=== PATIENT | female | born 1930 | race Two or more races ===

== ENCOUNTER 2017-12-09 14:55 | Inpatient (IN) | END 2017-12-30 16:15 | disposition home health service (06) | DRG 871 ==

== ENCOUNTER 2018-12-17 12:59 | Inpatient (IN) | payer MEDICARE, OTHER ==
[~2018-12-17] VITALS: Ht 157.5 cm; Wt 65.3 kg
[~2018-12-17 12:59] MED LIST: ALPR0.254 PO; ASCO500C7 PO; ATOR40TA68 PO; CARV6.25 PO; CHOL100062 PO; CIPR500T4 PO; CLOP75TA27 PO; CYAN1TAB2 PO; DOCU-144 PO; DONE5TAB53 PO; ESOM40CA51 PO; LOSA1TAB22 PO; MEMA5TAB PO; METF-849 PO; QUET25TA PO; SIME62.5 PO
--- NOTE | 2018-12-17 13:52 | ERD ---
ER Documentation Chief Complaint Chief Complaint BIBA FROM HOME FOR EVALUATION OF G-TUBE HPI This is an 88-year-old woman with a history of CVA, dysphasia, PEG tube brought in by EMS from home for bleeding from the stoma. Daughter who is at the bedside states the bleeding has been daily and moderate for about 1 week and the stoma has become wider recently. The patient's gastrostomy tube was replaced just prior to arrival with a 26 [place] tube, after tube replacement there was severe bleeding so they contacted 911 and transported her here for further evaluation. She has had no blood per rectum, no fevers or chills, no complaints of chest pain or shortness of breath ROS All systems reviewed and are negative except as per history of present illness. Medications Home Meds Reported Medications Carvedilol* (Carvedilol*) 6.25 Mg Tablet, 6.25 MG PO BID, #60 TAB 12/17/18 Losartan-Hydrochlorothiazide (Losartan-HCTZ) 50-12.5 Mg Tab, 1 TAB PO DAILY, TAB 12/17/18 Clopidogrel Bisulfate* (Clopidogrel Bisulfate*) 75 Mg Tablet, 75 MG GTB DAILY, #30 TAB 12/17/18 Levetiracetam* (Keppra*) 250 Mg Tab, 125 MG GTB BID, TAB 12/17/18 Metformin Hcl* (Metformin Hcl*) 500 Mg Tablet, 500 MG GTB WITH BREAKFAST DINNE, #60 TAB 12/17/18 Discontinued Reported Medications Alprazolam* (Alprazolam*) 0.25 Mg Tablet, 0.25 MG PO DAILY PRN for ANXIETY, TAB 12/09/17 Docusate Sodium* (Colace*) 100 Mg Capsule, 100 MG PO BID PRN for CONSTIPATION, #60 CAP 12/09/17 Atorvastatin* (Atorvastatin*) 40 Mg Tablet, 40 MG PO QHS, #30 TAB 12/09/17 Simethicone (Gas-X) 62.5 Mg Strip, 62.5 MG PO DAILY, STRIP 12/09/17 Cholecalciferol* (Vitamin D3*) 1,000 Unit Tablet, 1000 UNIT PO DAILY, TAB 12/09/17 Ascorbic Acid* (Vitamin C*) 500 Mg Capsule.sa, 500 MG PO DAILY, CAP 12/09/17 Losartan-Hydrochlorothiazide (Losartan-HCTZ) 50-12.5 Mg Tab, 1 TAB PO DAILY, #30 12/09/17 Carvedilol* (Coreg*) 6.25 Mg Tablet, 6.25 MG PO BID, #60 TAB 12/09/17 Quetiapine Fumarate* (Seroquel*) 25 Mg Tablet, 25 MG PO DAILY, #30 TAB 12/09/17 Cyanocobalamin/FA/Pyridoxine (Folgard Rx Tablet) 1 Each Tablet, 1 EACH PO DAILY, TAB 12/09/17 Metformin* (Glucophage*) 500 Mg Tab, 500 MG PO WITH MEALS, #90 TAB 12/09/17 Clopidogrel Bisulfate (Clopidogrel) 75 Mg Tablet, 75 MG PO DAILY, #30 TAB 12/09/17 Esomeprazole Magnesium (Esomeprazole Magnesium) 40 Mg Capsule.dr, 40 MG PO BEFORE BREAKFAST, #30 CAP 12/09/17 Discontinued Scripts Ciprofloxacin Hcl* (Ciprofloxacin Hcl*) 500 Mg Tablet, 500 MG PO BID for 7 Days, #14 TAB Prov:JUAN ALBERTO DUNLAP 12/30/17 Ciprofloxacin Hcl* (Ciprofloxacin Hcl*) 500 Mg Tablet, 500 MG PO BID for 3 Days, #6 TAB Prov:JUAN ALBERTO DUNLAP 12/30/17 Memantine* (Namenda*) 5 Mg Tablet, 5 MG PO DAILY, #60 TAB Prov:JUAN ALBERTO DUNLAP 12/30/17 Donepezil* (Aricept*) 5 Mg Tablet, 5 MG PO DAILY, #60 TAB Prov:GERMÁNJUAN ALBERTO PETERSON 12/30/17 Allergies Allergies: Coded Allergies: niacin (Verified Allergy, Unknown, 12/17/18) vancomycin (Unverified Allergy, Unknown, red and rash, 12/17/18) 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 CABALLERO: GIVE VANCO SLOWLY 12/11/17 PMhx/Soc CAD, recent CVA with hemiplegia and dysphagia requiring PEG tube placement, recent UTI, hypertension History of Surgery: No (bilateral hips replacement, Left one , right 06/02/2017,hysterectomy) Anesthesia Reaction: No Hx Neurological Disorder: Yes (diagnosis of possible dementia) Hx Respiratory Disorders: No Hx Cardiac Disorders: Yes (mild CHF,) Hx Psychiatric Problems: No Hx Miscellaneous Medical Probl: Yes (pls see EMR) Hx Alcohol Use: No Hx Substance Use: No Hx Tobacco Use: No FmHx Family History: No diabetes Physical Exam Vitals Vital Signs Date Temp Pulse Resp B/P (MAP) Pulse Ox O2 O2 Flow FiO2 Time Delivery Rate 12/17/18 98.6 88 16 146/90 97 13:12 (108) Physical Exam Const: No acute distress, afebrile Resp: Clear to auscultation bilaterally Cardio: Regular rate and rhythm, no murmurs Abd: Soft, non tender, non distended. There is about a 4 cm circular stoma with dark coagulated blood near and just beneath opening, PEG tube is in place Skin: No petechiae or rashes Neur: Awake and alert x1, no focal deficits or facial asymmetry, pupils equal round reactive to light, able to answer simple questions Psych: Normal Mood and Affect Result Diagram: 12/17/18 1430 12/17/18 1430 Results 24 hrs Current Medications Medications Dose Sig/Tavo Start Time Status Last (Trade) Ordered Route PRN Stop Time Admin Dose Reason Admin Sodium 500 ml @ Q1H STAT 12/17/18 DC 12/17/18 Chloride 500 mls/hr IV 14:14 14:53 12/17/18 15:13 Procedures/MDM IV line was established patient was placed on cushion worker rhythm strip revealed a sinus rhythm at about 80 bpm with upright P and T waves. Patient was afebrile I administered 500 cc normal saline IV X-ray Abdomen 1V Interpreted by me: Free Air: None Bowel Gas: Nonspecific Soft Tissue: Normal, gastrostomy tube is in proper position, balloon within the stomach lumen and no leaking contrast noted. CBC reveals a leukocytosis and mild anemia, electrolytes revealed dehydration with a BUN/creatinine of 29/0.5, liver function tests normal, lactic acid low. I do not suspect sepsis. I called GI for consultation, stoma and gastrostomy tube will have to be evaluated, patient will be admitted to [facility]. Departure Diagnosis: Primary Impression: Encounter for feeding tube placement Additional Impression: Acute dehydration Condition: NINI Up MD December 17, 2018 13:52
[2018-12-17] MEDS ORDERED: SOD CHLORIDE 0.9% 500 ML IV STA (14:14)
[2018-12-17] MEDS ORDERED: DIATR MEGLU/DIATRIZOATE SODIUM 30 ML SOLUTION PO ONE (14:30)
[2018-12-17] MEDS ORDERED: METF500T24 GTB (14:44)
[2018-12-17] MEDS ORDERED: CLOP75TA19 GTB (14:46)
[2018-12-17] MEDS ORDERED: LEVE250T66 GTB (14:46)
[2018-12-17] MEDS ORDERED: LOSA1TAB22 PO (14:47)
[2018-12-17] MEDS ORDERED: CARV6.2579 PO (14:47)
[2018-12-17] MEDS ORDERED: ONDANSETRON 4 MG INJ IV PRN (15:00)
[2018-12-17] MEDS ORDERED: NACL 0.9% 3 ML SYG IV SCH (15:00)
[2018-12-17] MEDS ORDERED: GLUCOSE GEL 15 GRAM TUBE BUCCAL PRN (15:00)
[2018-12-17] MEDS ORDERED: GLUCOSE GEL 15 GRAM TUBE PO PRN ×2 (15:00)
[2018-12-17] MEDS ORDERED: ACETAMINOPHEN 650 MG SUPP PR PRN (15:00)
[2018-12-17] MEDS ORDERED: hydrALAzine 20 MG INJ IV PRN (15:00)
[2018-12-17] MEDS ORDERED: GLUCAGON 1 MG INJ IM PRN (15:00)
[2018-12-17] MEDS ORDERED: DEXTROSE 50% 50 ML SYRINGE IV PRN ×2 (15:00)
[2018-12-17] MEDS ORDERED: LORAZEPAM 2 MG INJ IV PRN ×2 (15:00)
--- NOTE | 2018-12-17 15:02 | HP ---
Date/Time of Note Date/Time of Note DATE: 12/17/18 TIME: 15:02 Assessment/Plan VTE Prophylaxis Pharmacological prophylaxis: other Lines/Catheters IV Catheter Type (from Nrsg): Saline Lock Assessment/Plan Hospital Course Patient is a elderly female the past medical history significant for CVA, severe dementia, epilepsy, coronary artery disease, dysphagia with PEG tube, debility who presents to [facility] from home for PEG tube malfunction. Patient is currently at baseline mentation, is alert but not oriented at all. Patient is aphasic. Does not respond to command but is completely alert. Acco rding to daughter at bedside patient routinely gets her PEG tube changed every 3 months however since the last PEG tube change approximately 1 month ago she noticed a worsening erythema as well as blood coming from the PEG tube site. Patient's daughter stated that this began approximately 1 week ago. HPI cannot be completed due to patient's mental status Objective Physical exam General: Patient is laying in bed alert but at baseline not oriented Mentation: Patient is alert and not oriented at all does not follow command or track Head: Normocephalic atraumatic Eyes: EOMI, pupils reactive to light Neck: Supple, nontender, midline Respiratory: Clear to auscultation bilaterally Cardiovascular: regular rate, no obvious murmurs Gastrointestinal: non-tender to palpation, bowel sounds heard. PEG tube site, appears to have some bleeding as well as enlarged larger than the previous PEG t ube, Neurological: Responds to noxious stimuli, left upper extremity is contracted Assessment and plan Labs are not back yet, this may change the assessment and plan PEG tube site malfunction -PEG tube to small for current PEG tube site, may have enlarged -GI consulted, Dr. Goncalves -Some bleeding, awaiting labs -Some erythema, prophylactic antibiotic started Chronic encephalopathy -Secondary to CVA as well as severe dementia -Patient currently at baseline, widely alert but not oriented at all, not does not track, does not know family members, does not speak -Monitor Diabetes mellitus -Insulin as needed Dysphasia -Secondary to history of CVA dementia -IV fluids until issue with PEG tube site has been finalized Epilepsy -IV Keppra for now Disposition -Follow-up with GI recommendations, IV fluids for now, hold home meds, use IV version when able. Results 24hrs Laboratory Tests Test 12/17/18 14:30 White Blood Count Pending Red Blood Count Pending Hemoglobin Pending Hematocrit Pending Mean Corpuscular Volume Pending Mean Corpuscular Hemoglobin Pending Mean Corpuscular Hemoglobin Concent Pending Red Cell Distribution Width Pending Platelet Count Pending Mean Platelet Volume Pending HPI/ROS Admit Date/Time Admit Date/Time PMH/Family/Social Past Medical History Medications Current Medications Sodium Chloride 500 ml @ 500 mls/hr Q1H STAT IV Last administered on 12/17/18at 14:53; Admin Dose 500 MLS/HR; Start 12/17/18 at 14:14; Stop 12/17/18 at 15:13 Dextrose/Sodium Chloride 1,000 ml @ 75 mls/hr [id number] IV ; Start 12/17/18 at 14:31 IV Flush (NS 3 ml) 3 ml PER PROTOCOL IV ; Start 12/17/18 at 15:00 Lorazepam (Ativan) 2 mg Q10MIN PRN IV seizure; Start 12/17/18 at 15:00 Ondansetron HCl (Zofran Inj) 4 mg Q6H PRN IV NAUSEA/VOMITING; Start 12/17/18 at 15:00 Acetaminophen (Tylenol Supp) 650 mg Q6H PRN [place] .PAIN 1-3 OR TEMP; Start 12/17/18 at 15:00 Pantoprazole (Protonix Iv) 40 mg DAILY@06 IV ; Start 12/18/18 at 06:00; Status UNV Hydralazine HCl (Apresoline) 10 mg Q4H PRN IV sbp >160; Start 12/17/18 at 15:00 Lorazepam (Ativan) 0.5 mg Q6H PRN IV anxiety; Start 12/17/18 at 15:00 Miscellaneous Information (* Miscellaneous Pharmacy Order) Discontinue current oral sulfonylur... ONCE ONCE XX ; Start 12/17/18 at 15:00; Stop 12/17/18 at 15:01 Diagnostic Test (Pha) (Accu-Chek) 1 XX ; Start 12/18/18 at 02:00 Miscellaneous Information (* Miscellaneous Pharmacy Order) HYPOGLYCEMIA PROTOCOL w... ONCE ONCE XX ; Start 12/17/18 at 15:00; Stop 12/17/18 at 15:01 Insulin Aspart (Novolog Insulin Pen) NOVOLOG *MILD* ALGORITHM WITH MEALS BEDTIME SC ; Start 12/17/18 at 18:00 Miscellaneous Information (* Miscellaneous Pharmacy Order) Discontinue all previ... ONCE ONCE XX ; Start 12/17/18 at 15:00; Stop 12/17/18 at 15:01 Levetiracetam 100 ml @ 400 mls/hr Q12 IVPB ; Start 12/17/18 at 21:00; Status UNV Miscellaneous Information 1 ea NOTE XX ; Start 12/17/18 at 15:00 Glucose (Glutose) 15 gm Q15M PRN PO DECREASED GLUCOSE; Start 12/17/18 at 15:00 Glucose (Glutose) 22.5 gm Q15M PRN PO DECREASED GLUCOSE; Start 12/17/18 at 15:00 Dextrose (D50w Syringe) 25 ml Q15M PRN IV DECREASED GLUCOSE; Start 12/17/18 at 15:00 Dextrose (D50w Syringe) 50 ml Q15M PRN IV DECREASED GLUCOSE; Start 12/17/18 at 15:00 Glucagon (Glucagen) 1 mg Q15M PRN IM DECREASED GLUCOSE; Start 12/17/18 at 15:00 Glucose (Glutose) 15 gm Q15M PRN BUCCAL DECREASED GLUCOSE; Start 12/17/18 at 15:00 Coded Allergies: niacin (Verified Allergy, Unknown, 12/17/18) vancomycin (Unverified Allergy, Unknown, red and rash, 12/17/18) 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 CABALLERO: GIVE VANCO SLOWLY 12/11/17 Past Surgical History Past Surgical Hx: no surgical history Family History Significant Family History: no pertinent family hx Exam/Review of Systems Vital Signs Vitals Vital Signs Date Temp Pulse Resp B/P (MAP) Pulse Ox O2 O2 Flow FiO2 Time Delivery Rate 12/17/18 98.6 88 16 146/90 97 13:12 (108) NINI RIVERA December 17, 2018 15:02
--- NOTE | 2018-12-17 15:54 | CONS ---
Assessment/Plan Assessment/Plan Assessment/Plan (Daily) Assessment: Malfunctioning PEG tube -erythema and leakage Dysphasia status post PEG placement CVA Severe dementia Coronary artery disease Epilepsy Plan: Keep n.p.o. PEG tube to low intermittent suction We will reevaluate tomorrow PEG might need to be removed to allow stoma to heal for new plaque placement in 4 to 6 weeks Patient might need TPN Patient seen in collaboration with Dr. Goncalves Consultation Date/Type/Reason Admit Date/Time Date of Consultation: December 17, 2018 Type of Consult GI Reason for Consultation Malfunctioning gastrostomy tube Date/Time of Note DATE: 12/17/18 TIME: 15:38 Hx of Present Illness This is an 88-year-old female with a history of dementia and CVA , epilepsy, coronary artery disease, dysphagia with PEG tube who was admitted for PEG tube malfunction. The daughter states that G-tube site started bleeding about a week ago and erythema around insertion site developed. PEG tube was recently changed 1 month ago. According to nursing staff the stoma is greater in diameter than the PEG tube which causes the leak. Patient is currently off the floor at CT scan. Will reassess tomorrow. Meanwhile we will keep the tube clamped. Patient may need to have the tube removed and wait for the stoma to heal until the new PEG can be placed. Gastrointestinal: no complaints (See HPI) Past Medical History Home Meds Reported Medications Carvedilol* (Carvedilol*) 6.25 Mg Tablet, 6.25 MG PO BID, #60 TAB 12/17/18 Losartan-Hydrochlorothiazide (Losartan-HCTZ) 50-12.5 Mg Tab, 1 TAB PO DAILY, TAB 12/17/18 Clopidogrel Bisulfate* (Clopidogrel Bisulfate*) 75 Mg Tablet, 75 MG GTB DAILY, #30 TAB 12/17/18 Levetiracetam* (Keppra*) 250 Mg Tab, 125 MG GTB BID, TAB 12/17/18 Metformin Hcl* (Metformin Hcl*) 500 Mg Tablet, 500 MG GTB WITH BREAKFAST DINNE, #60 TAB 12/17/18 Discontinued Reported Medications Alprazolam* (Alprazolam*) 0.25 Mg Tablet, 0.25 MG PO DAILY PRN for ANXIETY, TAB 12/09/17 Docusate Sodium* (Colace*) 100 Mg Capsule, 100 MG PO BID PRN for CONSTIPATION, #60 CAP 12/09/17 Atorvastatin* (Atorvastatin*) 40 Mg Tablet, 40 MG PO QHS, #30 TAB 12/09/17 Simethicone (Gas-X) 62.5 Mg Strip, 62.5 MG PO DAILY, STRIP 12/09/17 Cholecalciferol* (Vitamin D3*) 1,000 Unit Tablet, 1000 UNIT PO DAILY, TAB 12/09/17 Ascorbic Acid* (Vitamin C*) 500 Mg Capsule.sa, 500 MG PO DAILY, CAP 12/09/17 Losartan-Hydrochlorothiazide (Losartan-HCTZ) 50-12.5 Mg Tab, 1 TAB PO DAILY, #30 12/09/17 Carvedilol* (Coreg*) 6.25 Mg Tablet, 6.25 MG PO BID, #60 TAB 12/09/17 Quetiapine Fumarate* (Seroquel*) 25 Mg Tablet, 25 MG PO DAILY, #30 TAB 12/09/17 Cyanocobalamin/FA/Pyridoxine (Folgard Rx Tablet) 1 Each Tablet, 1 EACH PO DAILY, TAB 12/09/17 Metformin* (Glucophage*) 500 Mg Tab, 500 MG PO WITH MEALS, #90 TAB 12/09/17 Clopidogrel Bisulfate (Clopidogrel) 75 Mg Tablet, 75 MG PO DAILY, #30 TAB 12/09/17 Esomeprazole Magnesium (Esomeprazole Magnesium) 40 Mg Capsule.dr, 40 MG PO BEFORE BREAKFAST, #30 CAP 12/09/17 Discontinued Scripts Ciprofloxacin Hcl* (Ciprofloxacin Hcl*) 500 Mg Tablet, 500 MG PO BID for 7 Days, #14 TAB Prov:JUAN ALBERTO DUNLAP 12/30/17 Ciprofloxacin Hcl* (Ciprofloxacin Hcl*) 500 Mg Tablet, 500 MG PO BID for 3 Days, #6 TAB Prov:JUAN ALBERTO DUNLAP 12/30/17 Memantine* (Namenda*) 5 Mg Tablet, 5 MG PO DAILY, #60 TAB Prov:JUAN ALBERTO DUNLAP 12/30/17 Donepezil* (Aricept*) 5 Mg Tablet, 5 MG PO DAILY, #60 TAB Prov:JUAN ALBERTO DUNLAP 12/30/17 Medications Current Medications Dextrose/Sodium Chloride 1,000 ml @ 75 mls/hr [id number] IV ; Start 12/17/18 at 14:31 IV Flush (NS 3 ml) 3 ml PER PROTOCOL IV ; Start 12/17/18 at 15:00 Lorazepam (Ativan) 2 mg Q10MIN PRN IV seizure; Start 12/17/18 at 15:00 Ondansetron HCl (Zofran Inj) 4 mg Q6H PRN IV NAUSEA/VOMITING; Start 12/17/18 at 15:00 Acetaminophen (Tylenol Supp) 650 mg Q6H PRN [place] .PAIN 1-3 OR TEMP; Start 12/17/18 at 15:00 Pantoprazole (Protonix Iv) 40 mg DAILY@06 IV ; Start 12/18/18 at 06:00 Hydralazine HCl (Apresoline) 10 mg Q4H PRN IV sbp >160; Start 12/17/18 at 15:00 Lorazepam (Ativan) 0.5 mg Q6H PRN IV anxiety; Start 12/17/18 at 15:00 Diagnostic Test (Pha) (Accu-Chek) 1 ea 02 XX ; Start 12/18/18 at 02:00 Insulin Aspart (Novolog Insulin Pen) NOVOLOG *MILD* ALGORITHM WITH MEALS BEDTIME SC ; Start 12/17/18 at 18:00 Miscellaneous Information 1 ea NOTE XX ; Start 12/17/18 at 15:00 Glucose (Glutose) 15 gm Q15M PRN PO DECREASED GLUCOSE; Start 12/17/18 at 15:00 Glucose (Glutose) 22.5 gm Q15M PRN PO DECREASED GLUCOSE; Start 12/17/18 at 15:00 Dextrose (D50w Syringe) 25 ml Q15M PRN IV DECREASED GLUCOSE; Start 12/17/18 at 15:00 Dextrose (D50w Syringe) 50 ml Q15M PRN IV DECREASED GLUCOSE; Start 12/17/18 at 15:00 Glucagon (Glucagen) 1 mg Q15M PRN IM DECREASED GLUCOSE; Start 12/17/18 at 15:00 Glucose (Glutose) 15 gm Q15M PRN BUCCAL DECREASED GLUCOSE; Start 12/17/18 at 15:00 Levetiracetam 125 mg/Dextrose 51.25 ml @ 205 mls/hr Q12 IV ; Start 12/17/18 at 21:00 Piperacillin Sod/ Tazobactam Sod 50 ml @ 100 mls/hr Q6 IVPB ; Start 12/17/18 at 18:00 Allergies: Coded Allergies: niacin (Verified Allergy, Unknown, 12/17/18) vancomycin (Unverified Allergy, Unknown, red and rash, 12/17/18) 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 CABALLERO: GIVE VANCO SLOWLY 12/11/17 Past Surgical History Past Surgical Hx: no surgical history Social History Smoking Status: Unknown if ever smoked Exam/Review of Systems Exam Vitals Vital Signs Date Temp Pulse Resp B/P (MAP) Pulse Ox O2 O2 Flow FiO2 Time Delivery Rate 12/17/18 98.6 81 24 144/60 100 Room Air 15:20 (88) Exam Patient is off the floor at CT scan. Results Result Diagram: 12/17/18 1430 12/17/18 1430 Results 24hrs Laboratory Tests Test 12/17/18 14:30 White Blood Count 16.7 #H Red Blood Count 3.32 #L Hemoglobin 9.6 L Hematocrit 28.5 L Mean Corpuscular Volume 85.8 Mean Corpuscular Hemoglobin 28.9 L Mean Corpuscular Hemoglobin Concent 33.7 Red Cell Distribution Width 13.4 Platelet Count 442 #H Mean Platelet Volume 8.7 Immature Granulocytes % 0.500 H Neutrophils % Lymphocytes % Monocytes % Eosinophils % Basophils % Nucleated Red Blood Cells % 0.0 Immature Granulocytes # 0.090 H Neutrophils # Lymphocytes # Monocytes # Eosinophils # Basophils # Nucleated Red Blood Cells # Prothrombin Time 13.6 Prothrombin Time Ratio 1.1 INR International Normalized Ratio 1.03 Activated Partial Thromboplast Time 26.9 Sodium Level 128 L Potassium Level 4.3 Chloride Level 87 L Carbon Dioxide Level 31 Anion Gap 10 Blood Urea Nitrogen 29 H Creatinine 0.47 Est Glomerular Filtrat Rate mL/min Glucose Level 123 Calcium Level 9.4 Total Bilirubin 0.2 Direct Bilirubin 0.00 Indirect Bilirubin 0.2 Aspartate Amino Transf (AST/SGOT) 18 Alanine Aminotransferase (ALT/SGPT) 14 Alkaline Phosphatase 93 Total Protein 7.0 Albumin 3.3 Globulin 3.70 H Albumin/Globulin Ratio 0.89 Lipase 129 Medications Medication Current Medications Dextrose/Sodium Chloride 1,000 ml @ 75 mls/hr [id number] IV ; Start 12/17/18 at 14:31 IV Flush (NS 3 ml) 3 ml PER PROTOCOL IV ; Start 12/17/18 at 15:00 Lorazepam (Ativan) 2 mg Q10MIN PRN IV seizure; Start 12/17/18 at 15:00 Ondansetron HCl (Zofran Inj) 4 mg Q6H PRN IV NAUSEA/VOMITING; Start 12/17/18 at 15:00 Acetaminophen (Tylenol Supp) 650 mg Q6H PRN [place] .PAIN 1-3 OR TEMP; Start 9 at 15:00 Pantoprazole (Protonix Iv) 40 mg DAILY@06 IV ; Start 12/18/18 at 06:00 Hydralazine HCl (Apresoline) 10 mg Q4H PRN IV sbp >160; Start 12/17/18 at 15:00 Lorazepam (Ativan) 0.5 mg Q6H PRN IV anxiety; Start 12/17/18 at 15:00 Diagnostic Test (Pha) (Accu-Chek) 1 ea 02 XX ; Start 12/18/18 at 02:00 Insulin Aspart (Novolog Insulin Pen) NOVOLOG *MILD* ALGORITHM WITH MEALS BEDTIME SC ; Start 12/17/18 at 18:00 Miscellaneous Information 1 ea NOTE XX ; Start 12/17/18 at 15:00 Glucose (Glutose) 15 gm Q15M PRN PO DECREASED GLUCOSE; Start 12/17/18 at 15:00 Glucose (Glutose) 22.5 gm Q15M PRN PO DECREASED GLUCOSE; Start 12/17/18 at 15:00 Dextrose (D50w Syringe) 25 ml Q15M PRN IV DECREASED GLUCOSE; Start 12/17/18 at 15:00 Dextrose (D50w Syringe) 50 ml Q15M PRN IV DECREASED GLUCOSE; Start 12/17/18 at 15:00 Glucagon (Glucagen) 1 mg Q15M PRN IM DECREASED GLUCOSE; Start 12/17/18 at 15:00 Glucose (Glutose) 15 gm Q15M PRN BUCCAL DECREASED GLUCOSE; Start 12/17/18 at 15:00 Levetiracetam 125 mg/Dextrose 51.25 ml @ 205 mls/hr Q12 IV ; Start 12/17/18 at 21:00 Piperacillin Sod/ Tazobactam Sod 50 ml @ 100 mls/hr Q6 IVPB ; Start 12/17/18 at 18:00 ALONSO GIBBONS NP December 17, 2018 15:50
[2018-12-17 16:00] VITALS: Ht 157.5 cm; Wt 65.3 kg
[2018-12-17] MEDS: DEXTROSE 5%-0.45% NACL 1,000 ML IV SCH (16:55)
[2018-12-17] MEDS: PIPER-TAZO 2.25 GM (PMX) 50 ML IVPB SCH (17:31)
[2018-12-17] MEDS ORDERED: INSULIN ASPART [NOVOLOG] 3 ML PEN SC SCH ×2 (18:00)
[2018-12-17 20:13] VITALS: BP 123/93; PULSE 82; RESP 16
[2018-12-17] MEDS ORDERED: LEVETIRACETAM 500 MG (PMX) 100 ML IVPB SCH (21:00)
[2018-12-17] MEDS: LEVETIRACETAM IV SCH (21:09)
[2018-12-17] MEDS: DEXTROSE 5% IV SCH (21:09)
[2018-12-17] MEDS: Insulin NOVOLOG SS MILD Algorithm (NPO/TPN/ENTERAL FEEDS) SC SCH (21:15)
[2018-12-18] MEDS: PIPER-TAZO 2.25 GM (PMX) 50 ML IVPB SCH ×4 (00:50→17:49)
[2018-12-18] MEDS: Insulin NOVOLOG SS MILD Algorithm (NPO/TPN/ENTERAL FEEDS) SC SCH ×6 (00:52→21:39)
[2018-12-18] MEDS: ACCU-CHEK XX SCH (00:54)
[2018-12-18 01:49] VITALS: BP 116/56; PULSE 85; RESP 16
[2018-12-18] MEDS: DEXTROSE 5%-0.45% NACL 1,000 ML IV SCH ×3 (03:51→21:44)
[2018-12-18] MEDS: PANTOPRAZOLE 40 MG INJ IV SCH (05:45)
[2018-12-18 07:56] VITALS: BP 120/57; PULSE 74; RESP 16
[2018-12-18] MEDS: DEXTROSE 5% IV SCH ×2 (08:17→21:41)
[2018-12-18] MEDS: LEVETIRACETAM IV SCH ×2 (08:17→21:41)
[2018-12-18] MEDS ORDERED: PENDING SANTYL ORDER FOR WOUND CARE XX PRN (12:30)
[2018-12-18 14:18] VITALS: BP 157/64; PULSE 73; RESP 16
--- NOTE | 2018-12-18 14:53 | PN ---
Date/Time of Note Date/Time of Note DATE: 12/18/18 TIME: 14:50 Objective Vitals Vital Signs Date Temp Pulse Resp B/P (MAP) Pulse Ox O2 O2 Flow FiO2 Time Delivery Rate 12/18/18 98.4 73 16 157/64 97 14:18 (95) 12/17/18 Room Air 15:20 Intake and Output 12/17/18 12/17/18 12/18/18 1414:59 22:59 06:59 IntakeIntake Total 676.25 ml 1025 ml OutputOutput Total 750 ml BalanceBalance 676.25 ml 275 ml Results Result Diagram: 12/18/18 0539 12/18/18 0541 Medications Medications Current Medications Dextrose/Sodium Chloride 1,000 ml @ 75 mls/hr [id number] IV Last administered on 12/18/18at 06:53; Admin Dose 75 MLS/HR; Start 12/17/18 at 14:31 IV Flush (NS 3 ml) 3 ml PER PROTOCOL IV ; Start 12/17/18 at 15:00 Lorazepam (Ativan) 2 mg Q10MIN PRN IV seizure; Start 12/17/18 at 15:00 Ondansetron HCl (Zofran Inj) 4 mg Q6H PRN IV NAUSEA/VOMITING; Start 12/17/18 at 15:00 Acetaminophen (Tylenol Supp) 650 mg Q6H PRN [place] .PAIN 1-3 OR TEMP; Start 12/17/18 at 15:00 Pantoprazole (Protonix Iv) 40 mg DAILY@06 IV Last administered on 12/18/18at 05:45; Admin Dose 40 MG; Start 12/18/18 at 06:00 Hydralazine HCl (Apresoline) 10 mg Q4H PRN IV sbp >160; Start 12/17/18 at 15:00 Lorazepam (Ativan) 0.5 mg Q6H PRN IV anxiety; Start 12/17/18 at 15:00 Diagnostic Test (Pha) (Accu-Chek) 1 ea 02 XX ; Start 12/18/18 at 02:00 Miscellaneous Information 1 ea NOTE XX ; Start 12/17/18 at 15:00 Glucose (Glutose) 15 gm Q15M PRN PO DECREASED GLUCOSE; Start 12/17/18 at 15:00 Glucose (Glutose) 22.5 gm Q15M PRN PO DECREASED GLUCOSE; Start 12/17/18 at 15:00 Dextrose (D50w Syringe) 25 ml Q15M PRN IV DECREASED GLUCOSE; Start 12/17/18 at 15:00 Dextrose (D50w Syringe) 50 ml Q15M PRN IV DECREASED GLUCOSE; Start 12/17/18 at 15:00 Glucagon (Glucagen) 1 mg Q15M PRN IM DECREASED GLUCOSE; Start 12/17/18 at 15:00 Glucose (Glutose) 15 gm Q15M PRN BUCCAL DECREASED GLUCOSE; Start 12/17/18 at 15:00 Levetiracetam 125 mg/Dextrose 51.25 ml @ 205 mls/hr Q12 IV Last administered on 12/18/18at 08:17; Admin Dose 205 MLS/HR; Start 12/17/18 at 21:00 Piperacillin Sod/ Tazobactam Sod 50 ml @ 100 mls/hr Q6 IVPB Last administered on 12/18/18at 13:48; Admin Dose 100 MLS/HR; Start 12/17/18 at 18:00 Insulin Aspart (Novolog Insulin Pen) (Adult SC Insulin - Mild Algorithm)... Q4 SC Last administered on 12/18/18at 12:29; Admin Dose 1 UNIT; Start 12/17/18 at 21:00 Miscellaneous Information (Pending [facility] Order For Wound Care) This patient pinto ... PRN PRN XX WOUND CARE; Start 12/18/18 at 12:30 Sodium Hypochlorite (Dakins Diluted (1/40)) 1 applic BID TP ; Start 12/18/18 at 15:30 VTE Prophylaxis Risk score (from Nsg)>0 risk: 7 SCD applied (from Nsg): Yes Lines/Catheters IV Catheter Type: Suggs in Place: No Assessment/Plan Hospital Course Subjective Patient at baseline from yesterday, no acute events Objective Physical exam General: Patient is laying in bed alert but at baseline not oriented Mentation: Patient is alert and not oriented at all does not follow command or track Head: Normocephalic atraumatic Eyes: EOMI, pupils reactive to light Neck: Supple, nontender, midline Respiratory: Clear to auscultation bilaterally Cardiovascular: regular rate, no obvious murmurs Gastrointestinal: non-tender to palpation, bowel sounds heard. PEG tube site, appears to have some bleeding as well as enlarged larger than the previous PEG tube, Neurological: Responds to noxious stimuli, left upper extremity is contracted Assessment and plan PEG tube site cellulitis -Broad-spectrum IV antibiotics PEG tube site malfunction -PEG tube to small for current PEG tube site, may have enlarged -GI consulted, Dr. Goncalves -We will likely need removal and a couple months to heal, GI recommendations appreciated, will get dietary consult for TPN. 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 Continue IV antibiotic NINI RIVERA December 18, 2018 14:53
[2018-12-18] MEDS: DAKINS 0.0125%(1/40) 473 ML SOLUTION TP SCH (15:30)
--- NOTE | 2018-12-18 16:34 | PN ---
Date/Time of Note Date/Time of Note DATE: 12/18/18 TIME: 16:25 Assessment/Plan VTE Prophylaxis Risk score (from Ns)>0 risk: 7 SCD applied (from Ns): Yes Pharmacological prophylaxis: heparin Lines/Catheters [facility] (from [facility]): Urinary Cath still in place: No Assessment/Plan Hospital Course Assessment: Malfunctioning PEG tube -erythema and leakage, improved Dysphasia status post PEG placement CVA Severe dementia Coronary artery disease Epilepsy Plan: Keep n.p.o. PEG tube clamped, gastrostomy healing. Continue local wound care and dressing changes. We will reevaluate tomorrow for further improvement. May be able to resume enteral feedings soon if continues to improve. If not improved, PEG might need to be removed to allow stoma to heal for new plaque placement in 4 to 6 weeks Patient might need TPN if no improvement. Patient seen in collaboration with Dr. Goncalves Subjective: Patient resting comfortably in bed, alert. She remain NPO with IV fluids. Gastrostomy tube is clamped, thick white leakage around stoma site, though family reports the ostomy is healing and improved. Seen by wound care nurses for dressing changes. Per family, they would like to avoid having it removed and having another one later. If continues to improve in the next 1-2 days, may be able to resume feedings. Result Diagram: 12/18/18 0539 12/18/18 0541 Results 24hrs Laboratory Tests Test 12/17/18 16:31 12/17/18 17:32 12/17/18 21:12 12/18/18 00:50 Lactic Acid Level 1.2 Bedside Glucose 153 159 156 Test 12/18/18 05:39 12/18/18 05:41 12/18/18 05:49 12/18/18 08:50 White Blood Count 13.1 #H Red Blood Count 3.24 L Hemoglobin 9.3 L Hematocrit 28.4 L Mean Corpuscular 87.7 Volume Mean Corpuscular 28.7 L Hemoglobin Mean Corpuscular 32.7 Hemoglobin Concent Red Cell 13.5 Distribution Width Platelet Count 418 H Mean Platelet Volume 8.8 Immature 0.500 H Granulocytes % Neutrophils % 61.8 Lymphocytes % 27.9 Monocytes % 8.0 Eosinophils % 1.4 Basophils % 0.4 Nucleated Red Blood 0.0 Cells % Immature 0.070 H Granulocytes # Neutrophils # 8.1 H Lymphocytes # 3.7 H Monocytes # 1.1 H Eosinophils # 0.2 Basophils # 0.1 Nucleated Red Blood 0.0 Cells # Hemoglobin A1c 6.1 H Sodium Level 129 L Potassium Level 4.0 Chloride Level 92 L Carbon Dioxide Level 28 Anion Gap 9 Blood Urea Nitrogen 26 H Creatinine 0.52 Est Glomerular Filtrat Rate mL/min Glucose Level 142 Calcium Level 9.0 Magnesium Level 1.6 L Total Bilirubin 0.4 Direct Bilirubin 0.00 Indirect Bilirubin 0.4 Aspartate Amino 19 Transf (AST/SGOT) Alanine 16 Aminotransferase (AL T/SGPT) Alkaline Phosphatase 86 Total Protein 6.7 Albumin 3.1 L Globulin 3.60 H Albumin/Globulin 0.86 Ratio Triglycerides Level 80 Cholesterol Level 117 LDL Cholesterol, 76 Calculated HDL Cholesterol 25 L Cholesterol/HDL 4.6 Ratio Thyroid Stimulating 2.210 Hormone (TSH) Bedside Glucose 170 170 Test 12/18/18 12:26 Bedside Glucose 150 CC: MARYCHUY GONCALVES MD ; Exam/Review of Systems Exam Vitals Vital Signs Date Temp Pulse Resp B/P (MAP) Pulse Ox O2 O2 Flow FiO2 Time Delivery Rate 12/18/18 98.4 73 16 157/64 97 14:18 (95) 12/17/18 Room Air 15:20 Intake and Output 12/17/18 12/17/18 12/18/18 1515:00 23:00 07:00 IntakeIntake Total 676.25 ml 1025 ml OutputOutput Total 750 ml BalanceBalance 676.25 ml 275 ml Constitutional: alert, frail Psych: confusion Head: normocephalic, atraumatic Eyes: nl conjunctiva ENMT: nl external ears & nose Neck: supple Respiratory: clear to auscultation Cardiovascular: regular rate and rhythm Gastrointestinal: soft, nl liver, spleen, non-tender, other (g tube in place, thick white drainage around stoma site, mild erythema) Musculoskeletal: nl extremities to inspection Neurological: confused Results Results 24hrs Laboratory Tests Test 12/17/18 16:31 12/17/18 17:32 12/17/18 21:12 12/18/18 00:50 Lactic Acid Level 1.2 Bedside Glucose 153 159 156 Test 12/18/18 05:39 12/18/18 05:41 12/18/18 05:49 12/18/18 08:50 White Blood Count 13.1 #H Red Blood Count 3.24 L Hemoglobin 9.3 L Hematocrit 28.4 L Mean Corpuscular 87.7 Volume Mean Corpuscular 28.7 L Hemoglobin Mean Corpuscular 32.7 Hemoglobin Concent Red Cell 13.5 Distribution Width Platelet Count 418 H Mean Platelet Volume 8.8 Immature 0.500 H Granulocytes % Neutrophils % 61.8 Lymphocytes % 27.9 Monocytes % 8.0 Eosinophils % 1.4 Basophils % 0.4 Nucleated Red Blood 0.0 Cells % Immature 0.070 H Granulocytes # Neutrophils # 8.1 H Lymphocytes # 3.7 H Monocytes # 1.1 H Eosinophils # 0.2 Basophils # 0.1 Nucleated Red Blood 0.0 Cells # Hemoglobin A1c 6.1 H Sodium Level 129 L Potassium Level 4.0 Chloride Level 92 L Carbon Dioxide Level 28 Anion Gap 9 Blood Urea Nitrogen 26 H Creatinine 0.52 Est Glomerular Filtrat Rate mL/min Glucose Level 142 Calcium Level 9.0 Magnesium Level 1.6 L Total Bilirubin 0.4 Direct Bilirubin 0.00 Indirect Bilirubin 0.4 Aspartate Amino 19 Transf (AST/SGOT) Alanine 16 Aminotransferase (AL T/SGPT) Alkaline Phosphatase 86 Total Protein 6.7 Albumin 3.1 L Globulin 3.60 H Albumin/Globulin 0.86 Ratio Triglycerides Level 80 Cholesterol Level 117 LDL Cholesterol, 76 Calculated HDL Cholesterol 25 L Cholesterol/HDL 4.6 Ratio Thyroid Stimulating 2.210 Hormone (TSH) Bedside Glucose 170 170 Test 12/18/18 12:26 Bedside Glucose 150 Medications Medication Current Medications Dextrose/Sodium Chloride 1,000 ml @ 75 mls/hr [id number] IV Last administered on 12/18/18at 06:53; Admin Dose 75 MLS/HR; Start 12/17/18 at 14:31 IV Flush (NS 3 ml) 3 ml PER PROTOCOL IV ; Start 12/17/18 at 15:00 Lorazepam (Ativan) 2 mg Q10MIN PRN IV seizure; Start 12/17/18 at 15:00 Ondansetron HCl (Zofran Inj) 4 mg Q6H PRN IV NAUSEA/VOMITING; Start 12/17/18 at 15:00 Acetaminophen (Tylenol Supp) 650 mg Q6H PRN [place] .PAIN 1-3 OR TEMP; Start 12/17/18 at 15:00 Pantoprazole (Protonix Iv) 40 mg DAILY@06 IV Last administered on 12/18/18at 05:45; Admin Dose 40 MG; Start 12/18/18 at 06:00 Hydralazine HCl (Apresoline) 10 mg Q4H PRN IV sbp >160; Start 12/17/18 at 15:00 Lorazepam (Ativan) 0.5 mg Q6H PRN IV anxiety; Start 12/17/18 at 15:00 Diagnostic Test (Pha) (Accu-Chek) 1 ea 02 XX ; Start 12/18/18 at 02:00 Miscellaneous Information 1 ea NOTE XX ; Start 12/17/18 at 15:00 Glucose (Glutose) 15 gm Q15M PRN PO DECREASED GLUCOSE; Start 12/17/18 at 15:00 Glucose (Glutose) 22.5 gm Q15M PRN PO DECREASED GLUCOSE; Start 12/17/18 at 15:00 Dextrose (D50w Syringe) 25 ml Q15M PRN IV DECREASED GLUCOSE; Start 12/17/18 at 15:00 Dextrose (D50w Syringe) 50 ml Q15M PRN IV DECREASED GLUCOSE; Start 12/17/18 at 15:00 Glucagon (Glucagen) 1 mg Q15M PRN IM DECREASED GLUCOSE; Start 12/17/18 at 15:00 Glucose (Glutose) 15 gm Q15M PRN BUCCAL DECREASED GLUCOSE; Start 12/17/18 at 15:00 Levetiracetam 125 mg/Dextrose 51.25 ml @ 205 mls/hr Q12 IV Last administered on 12/18/18at 08:17; Admin Dose 205 MLS/HR; Start 12/17/18 at 21:00 Piperacillin Sod/ Tazobactam Sod 50 ml @ 100 mls/hr Q6 IVPB Last administered on 12/18/18at 13:48; Admin Dose 100 MLS/HR; Start 12/17/18 at 18:00 Insulin Aspart (Novolog Insulin Pen) (Adult SC Insulin - Mild Algorithm)... Q4 SC Last administered on 12/18/18at 12:29; Admin Dose 1 UNIT; Start 12/17/18 at 21:00 Miscellaneous Information (Pending [facility] Order For Wound Care) This patient pinto... PRN PRN XX WOUND CARE; Start 12/18/18 at 12:30 Sodium Hypochlorite (Dakins Diluted (1/40)) 1 applic BID TP ; Start 12/18/18 at 15:30 RAJIV HOFFMAN SHIELD OPERATOR December 18, 2018 16:34
[2018-12-18 19:44] VITALS: BP 127/82; PULSE 77; RESP 16
[2018-12-19] MEDS: DAKINS 0.0125%(1/40) 473 ML SOLUTION TP SCH ×3 (00:11→20:31)
[2018-12-19] MEDS: PIPER-TAZO 2.25 GM (PMX) 50 ML IVPB SCH ×4 (00:11→17:45)
[2018-12-19] MEDS: Insulin NOVOLOG SS MILD Algorithm (NPO/TPN/ENTERAL FEEDS) SC SCH ×6 (00:13→20:35)
[2018-12-19 01:23] VITALS: BP 125/56; PULSE 76; RESP 16
[2018-12-19] MEDS: ACCU-CHEK XX SCH (01:40)
[2018-12-19] MEDS: PANTOPRAZOLE 40 MG INJ IV SCH (05:42)
[2018-12-19 07:46] VITALS: BP 132/56; PULSE 74; RESP 20
[2018-12-19] MEDS: LEVETIRACETAM IV SCH ×2 (08:41→21:00)
[2018-12-19] MEDS: DEXTROSE 5% IV SCH ×2 (08:41→21:00)
[2018-12-19] MEDS ORDERED: MAGNESIUM SULFATE 2 GM/50 ML 50 ML IVPB ONE (10:30)
--- NOTE | 2018-12-19 12:35 | PN ---
Date/Time of Note Date/Time of Note DATE: 12/19/18 TIME: 12:30 Objective Vitals Vital Signs Date Temp Pulse Resp B/P (MAP) Pulse Ox O2 O2 Flow FiO2 Time Delivery Rate 12/19/18 98.7 74 20 132/56 96 07:46 (81) 12/17/18 Room Air 15:20 Intake and Output 12/18/18 12/18/18 12/19/18 1515:00 23:00 07:00 IntakeIntake Total 51.25 ml 1151.25 ml 575 ml OutputOutput Total 1000 ml 500 ml BalanceBalance 51.25 ml 151.25 ml 75 ml Results Result Diagram: 12/19/18 0551 12/19/18 0550 Medications Medications Current Medications Dextrose/Sodium Chloride 1,000 ml @ 75 mls/hr [id number] IV Last administered on 12/18/18at 21:44; Admin Dose 75 MLS/HR; Start 12/17/18 at 14:31 IV Flush (NS 3 ml) 3 ml PER PROTOCOL IV ; Start 12/17/18 at 15:00 Lorazepam (Ativan) 2 mg Q10MIN PRN IV seizure; Start 12/17/18 at 15:00 Ondansetron HCl (Zofran Inj) 4 mg Q6H PRN IV NAUSEA/VOMITING; Start 12/17/18 at 15:00 Acetaminophen (Tylenol Supp) 650 mg Q6H PRN [place] .PAIN 1-3 OR TEMP; Start 12/17/18 at 15:00 Pantoprazole (Protonix Iv) 40 mg DAILY@06 IV Last administered on 12/19/18at 05:42; Admin Dose 40 MG; Start 12/18/18 at 06:00 Hydralazine HCl (Apresoline) 10 mg Q4H PRN IV sbp >160; Start 12/17/18 at 15:00 Lorazepam (Ativan) 0.5 mg Q6H PRN IV anxiety; Start 12/17/18 at 15:00 Diagnostic Test (Pha) (Accu-Chek) 1 ea 02 XX ; Start 12/18/18 at 02:00 Miscellaneous Information 1 ea NOTE XX ; Start 12/17/18 at 15:00 Glucose (Glutose) 15 gm Q15M PRN PO DECREASED GLUCOSE; Start 12/17/18 at 15:00 Glucose (Glutose) 22.5 gm Q15M PRN PO DECREASED GLUCOSE; Start 12/17/18 at 15:00 Dextrose (D50w Syringe) 25 ml Q15M PRN IV DECREASED GLUCOSE; Start 12/17/18 at 15:00 Dextrose (D50w Syringe) 50 ml Q15M PRN IV DECREASED GLUCOSE; Start 12/17/18 at 15:00 Glucagon (Glucagen) 1 mg Q15M PRN IM DECREASED GLUCOSE; Start 12/17/18 at 15:00 Glucose (Glutose) 15 gm Q15M PRN BUCCAL DECREASED GLUCOSE; Start 12/17/18 at 15:00 Levetiracetam 125 mg/Dextrose 51.25 ml @ 205 mls/hr Q12 IV Last administered on 12/19/18at 08:41; Admin Dose 205 MLS/HR; Start 12/17/18 at 21:00 Piperacillin Sod/ Tazobactam Sod 50 ml @ 100 mls/hr Q6 IVPB Last administered on 12/19/18at 05:42; Admin Dose 100 MLS/HR; Start 12/17/18 at 18:00 Insulin Aspart (Novolog Insulin Pen) (Adult SC Insulin - Mild Algorithm)... Q4 SC Last administered on 12/19/18at 08:53; Admin Dose 1 UNIT; Start 12/17/18 at 21:00 Miscellaneous Information (Pending [facility] Order For Wound Care) This patient pinto... PRN PRN XX WOUND CARE; Start 12/18/18 at 12:30 Sodium Hypochlorite (Dakins Diluted (1/40)) 1 applic BID TP Last administered on 12/19/18at 08:49; Admin Dose 1 APPLIC; Start 12/18/18 at 15:30 VTE Prophylaxis Risk score (from Nsg)>0 risk: 7 SCD applied (from Nsg): Yes Lines/Catheters IV Catheter Type: Suggs in Place: No Assessment/Plan Hospital Course Subjective Patient at baseline from yesterday, no acute events Objective Physical exam General: Patient is laying in bed alert but at baseline not oriented Mentation: Patient is alert and not oriented at all does not follow command or track Head: Normocephalic atraumatic Eyes: EOMI, pupils reactive to light Neck: Supple, nontender, midline Respiratory: Clear to auscultation bilaterally Cardiovascular: regular rate, no obvious murmurs Gastrointestinal: non-tender to palpation, bowel sounds heard. PEG tube site, appears to have some bleeding as well as enlarged larger than the previous PEG tube, Neurological: Responds to noxious stimuli, left upper extremity is contracted Assessment and plan PEG tube site cellulitis -Broad-spectrum IV antibiotics PEG tube site malfunction -PEG tube to small for current PEG tube site, may have enlarged -GI consulted, Dr. Goncalves -Healing well per GI, will wait to see if TPN needs to be started, patient's family is against picc line for now. 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 Continue IV antibiotic NINI RIVERA December 19, 2018 12:35
--- NOTE | 2018-12-19 13:09 | PN ---
Date/Time of Note Date/Time of Note DATE: 12/19/18 TIME: 13:00 Assessment/Plan VTE Prophylaxis Risk score (from Ns)>0 risk: 7 SCD applied (from Ns): Yes Pharmacological prophylaxis: heparin Lines/Catheters [facility] ([facility] Urinary Cath still in place: No Assessment/Plan Assessment/Plan Assessment: Malfunctioning PEG tube -erythema and leakage, improved Dysphasia status post PEG placement CVA Severe dementia Coronary artery disease Epilepsy Plan: Attempted to flush G-tube with significant leakage around site. Keep n.p.o. PEG tube clamped, gastrostomy healing. Continue local wound care and dressing changes to g tube site. Continue antibiotics We will reevaluate tomorrow for further improvement. May be able to resume enteral feedings soon if continues to improve. If not improved, PEG might need to be removed to allow stoma to heal for new plaque placement in 4 to 6 weeks Patient might need to initiate TPN if no improvement by tomorrow. Patient seen in collaboration with Dr. Goncalves Subjective: Patient resting comfortably in bed, alert. She remain NPO with IV fluids. Gastrostomy tube is clamped, minimal drainage around stoma site, though family reports further healing and improvement from yesterday. Seen by wound care nurses for dressing changes. Per family, they would like to avoid having G-tube removed and having another one later. If continues to improve in the next 1-2 days, may be able to resume feedings. Otherwise will need to start TPN and have the G-tube removed. Physical exam: Constitutional: alert, frail Psych: confusion Head: normocephalic, atraumatic Eyes: nl conjunctiva ENMT: nl external ears & nose Neck: supple Respiratory: clear to auscultation Cardiovascular: regular rate and rhythm Gastrointestinal: soft, nl liver, spleen, non-tender, other (g tube in place, thick white drainage around stoma site, mild erythema) Musculoskeletal: nl extremities to inspection Neurological: confused Result Diagram: 12/19/18 0551 12/19/18 0550 Results 24hrs Laboratory Tests Test 12/18/18 17:46 12/18/18 21:37 12/19/18 00:13 12/19/18 05:44 Bedside Glucose 148 183 133 153 Test 12/19/18 05:50 12/19/18 05:51 12/19/18 08:38 Sodium Level 131 L Potassium Level 4.0 Chloride Level 95 L Carbon Dioxide Level 27 Anion Gap 9 Blood Urea Nitrogen 18 Creatinine 0.55 Est Glomerular Filtrat Rate mL/min Glucose Level 170 Calcium Level 9.1 Phosphorus Level 3.3 Magnesium Level 1.5 L White Blood Count 13.0 H Red Blood Count 3.04 L Hemoglobin 8.8 L Hematocrit 26.5 L Mean Corpuscular 87.2 Volume Mean Corpuscular 28.9 L Hemoglobin Mean Corpuscular 33.2 Hemoglobin Concent Red Cell 13.7 Distribution Width Platelet Count 418 H Mean Platelet Volume 8.8 Immature 0.500 H Granulocytes % Neutrophils % 59.6 Lymphocytes % 29.1 Monocytes % 8.5 Eosinophils % 1.9 Basophils % 0.4 Nucleated Red Blood 0.0 Cells % Immature 0.070 H Granulocytes # Neutrophils # 7.7 H Lymphocytes # 3.8 H Monocytes # 1.1 H Eosinophils # 0.2 Basophils # 0.1 Nucleated Red Blood 0.0 Cells # Bedside Glucose 165 CC: MARYCHUY GONCALVES MD ; Exam/Review of Systems Exam Vitals Vital Signs Date Temp Pulse Resp B/P (MAP) Pulse Ox O2 O2 Flow FiO2 Time Delivery Rate 12/19/18 98.7 74 20 132/56 96 07:46 (81) 12/17/18 Room Air 15:20 Intake and Output 12/18/18 12/18/18 12/19/18 1515:00 23:00 07:00 IntakeIntake Total 51.25 ml 1151.25 ml 575 ml OutputOutput Total 1000 ml 500 ml BalanceBalance 51.25 ml 151.25 ml 75 ml Results Results 24hrs Laboratory Tests Test 12/18/18 17:46 12/18/18 21:37 12/19/18 00:13 12/19/18 05:44 Bedside Glucose 148 183 133 153 Test 12/19/18 05:50 12/19/18 05:51 12/19/18 08:38 Sodium Level 131 L Potassium Level 4.0 Chloride Level 95 L Carbon Dioxide Level 27 Anion Gap 9 Blood Urea Nitrogen 18 Creatinine 0.55 Est Glomerular Filtrat Rate mL/min Glucose Level 170 Calcium Level 9.1 Phosphorus Level 3.3 Magnesium Level 1.5 L White Blood Count 13.0 H Red Blood Count 3.04 L Hemoglobin 8.8 L Hematocrit 26.5 L Mean Corpuscular 87.2 Volume Mean Corpuscular 28.9 L Hemoglobin Mean Corpuscular 33.2 Hemoglobin Concent Red Cell 13.7 Distribution Width Platelet Count 418 H Mean Platelet Volume 8.8 Immature 0.500 H Granulocytes % Neutrophils % 59.6 Lymphocytes % 29.1 Monocytes % 8.5 Eosinophils % 1.9 Basophils % 0.4 Nucleated Red Blood 0.0 Cells % Immature 0.070 H Granulocytes # Neutrophils # 7.7 H Lymphocytes # 3.8 H Monocytes # 1.1 H Eosinophils # 0.2 Basophils # 0.1 Nucleated Red Blood 0.0 Cells # Bedside Glucose 165 Medications Medication Current Medications Dextrose/Sodium Chloride 1,000 ml @ 75 mls/hr [id number] IV Last administered on 12/18/18at 21:44; Admin Dose 75 MLS/HR; Start 12/17/18 at 14:31 IV Flush (NS 3 ml) 3 ml PER PROTOCOL IV ; Start 12/17/18 at 15:00 Lorazepam (Ativan) 2 mg Q10MIN PRN IV seizure; Start 12/17/18 at 15:00 Ondansetron HCl (Zofran Inj) 4 mg Q6H PRN IV NAUSEA/VOMITING; Start 12/17/18 at 15:00 Acetaminophen (Tylenol Supp) 650 mg Q6H PRN [place] .PAIN 1-3 OR TEMP; Start 12/17/18 at 15:00 Pantoprazole (Protonix Iv) 40 mg DAILY@06 IV Last administered on 12/19/18at 05:42; Admin Dose 40 MG; Start 12/18/18 at 06:00 Hydralazine HCl (Apresoline) 10 mg Q4H PRN IV sbp >160; Start 12/17/18 at 15:00 Lorazepam (Ativan) 0.5 mg Q6H PRN IV anxiety; Start 12/17/18 at 15:00 Diagnostic Test (Pha) (Accu-Chek) 1 ea 02 XX ; Start 12/18/18 at 02:00 Miscellaneous Information 1 ea NOTE XX ; Start 12/17/18 at 15:00 Glucose (Glutose) 15 gm Q15M PRN PO DECREASED GLUCOSE; Start 12/17/18 at 15:00 Glucose (Glutose) 22.5 gm Q15M PRN PO DECREASED GLUCOSE; Start 12/17/18 at 15:00 Dextrose (D50w Syringe) 25 ml Q15M PRN IV DECREASED GLUCOSE; Start 12/17/18 at 15:00 Dextrose (D50w Syringe) 50 ml Q15M PRN IV DECREASED GLUCOSE; Start 12/17/18 at 15:00 Glucagon (Glucagen) 1 mg Q15M PRN IM DECREASED GLUCOSE; Start 12/17/18 at 15:00 Glucose (Glutose) 15 gm Q15M PRN BUCCAL DECREASED GLUCOSE; Start 12/17/18 at 1 5:00 Levetiracetam 125 mg/Dextrose 51.25 ml @ 205 mls/hr Q12 IV Last administered on 12/19/18at 08:41; Admin Dose 205 MLS/HR; Start 12/17/18 at 21:00 Piperacillin Sod/ Tazobactam Sod 50 ml @ 100 mls/hr Q6 IVPB Last administered on 12/19/18at 05:42; Admin Dose 100 MLS/HR; Start 12/17/18 at 18:00 Insulin Aspart (Novolog Insulin Pen) (Adult SC Insulin - Mild Algorithm)... Q4 SC Last administered on 12/19/18at 08:53; Admin Dose 1 UNIT; Start 12/17/18 at 21:00 Miscellaneous Information [facility] This patient pinto... PRN PRN XX WOUND CARE; Start 12/18/18 at 12:30 Sodium Hypochlorite (Dakins Diluted (1/40)) 1 applic BID TP Last administered on 12/19/18at 08:49; Admin Dose 1 APPLIC; Start 12/18/18 at 15:30 RAJIV HOFFMAN NP December 19, 2018 13:09
[2018-12-19 13:31] VITALS: BP 160/58; PULSE 74; RESP 18
[2018-12-19] MEDS: DEXTROSE 5%-0.45% NACL 1,000 ML IV SCH ×2 (16:24→19:51)
[2018-12-19 20:00] VITALS: BP 141/66; PULSE 70; RESP 18
[2018-12-20] MEDS: PIPER-TAZO 2.25 GM (PMX) 50 ML IVPB SCH ×4 (00:13→17:48)
[2018-12-20] MEDS: Insulin NOVOLOG SS MILD Algorithm (NPO/TPN/ENTERAL FEEDS) SC SCH ×6 (00:14→21:31)
[2018-12-20] MEDS: ACCU-CHEK XX SCH (01:01)
[2018-12-20 02:00] VITALS: BP 133/56; PULSE 77; RESP 18
[2018-12-20] MEDS: PANTOPRAZOLE 40 MG INJ IV SCH (05:18)
[2018-12-20 07:42] VITALS: BP 159/70; PULSE 74; RESP 16
[2018-12-20] MEDS: LEVETIRACETAM IV SCH ×2 (09:01→21:32)
[2018-12-20] MEDS: DAKINS 0.0125%(1/40) 473 ML SOLUTION TP SCH ×2 (09:01→21:32)
[2018-12-20] MEDS: DEXTROSE 5% IV SCH ×2 (09:01→21:32)
[2018-12-20] MEDS: DEXTROSE 5%-0.45% NACL 1,000 ML IV SCH ×2 (09:02→22:31)
[2018-12-20] MEDS ORDERED: BISACODYL 10 MG SUPP PR PRN (10:30)
--- NOTE | 2018-12-20 10:30 | PN ---
Date/Time of Note Date/Time of Note DATE: 12/20/18 TIME: 10:30 Assessment/Plan VTE Prophylaxis Risk score (from Nsg)>0 risk: 7 SCD applied (from Nsg): Yes Pharmacological prophylaxis: heparin Lines/Catheters IV Catheter Type (from Nrsg): Peripheral IV Urinary Cath still in place: Yes Reason Cath still needed: terminal illness/intractable pain Assessment/Plan Assessment/Plan 1. PEG site malfunction - GI on board and appreciate recommendations. Will need to monitor for improvement in stoma site prior to restarting tube feeds - family does not want PICC line placed at this time and will hold off on TPN based on GI recommendations 2. 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 Diabetes mellitus - Insulin as needed 4. 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 Epilepsy - IV Keppra for now 6. Disposition - Will await GI reevaluation prior to restarting tube feeds based on stomal site healing Result Diagram: 12/20/18 0443 12/20/18 0443 Results 24hrs Laboratory Tests Test 12/19/18 12:55 12/19/18 17:44 12/19/18 20:29 12/20/18 00:12 Bedside Glucose 138 161 154 185 Test 12/20/18 04:43 12/20/18 05:18 12/20/18 09:00 White Blood Count 11.0 H Red Blood Count 3.13 L Hemoglobin 8.9 L Hematocrit 27.0 L Mean Corpuscular 86.3 Volume Mean Corpuscular 28.4 L Hemoglobin Mean Corpuscular 33.0 Hemoglobin Concent Red Cell 13.6 Distribution Width Platelet Count 413 Mean Platelet Volume 8.5 Immature 0.500 H Granulocytes % Neutrophils % 55.8 Lymphocytes % 32.8 Monocytes % 8.4 Eosinophils % 2.1 Basophils % 0.4 Nucleated Red Blood 0.0 Cells % Immature 0.060 H Granulocytes # Neutrophils # 6.2 Lymphocytes # 3.6 H Monocytes # 0.9 Eosinophils # 0.2 Basophils # 0.0 Nucleated Red Blood 0.0 Cells # Sodium Level 132 L Potassium Level 3.6 Chloride Level 98 Carbon Dioxide Level 26 Anion Gap 8 Blood Urea Nitrogen 13 Creatinine 0.54 Est Glomerular Filtrat Rate mL/min Glucose Level 148 Calcium Level 9.0 Phosphorus Level 3.1 Magnesium Level 1.9 Bedside Glucose 164 168 Subjective 24 Hr Interval Summary Free Text/Dictation Patient in no acute distress. Family at bedside and concerned last BM was thursday. No acute overnight events. Exam/Review of Systems Exam Vitals Vital Signs Date Temp Pulse Resp B/P (MAP) Pulse Ox O2 O2 Flow FiO2 Time Delivery Rate 12/20/18 98.1 74 16 159/70 98 07:42 (99) 12/17/18 Room Air 15:20 Intake and Output 12/19/18 12/19/18 12/20/18 1414:59 22:59 06:59 IntakeIntake Total 201.25 ml 726.25 ml 850 ml OutputOutput Total 800 ml 550 ml BalanceBalance 201.25 ml -73.75 ml 300 ml Exam General: Patient is laying in bed alert but nonverbal Head: Normocephalic atraumatic Neck: Supple, nontender, midline Respiratory: Clear to auscultation bilaterally. no wheezing or rhonchi Cardiovascular: regular rate and rhythm, no obvious murmurs Gastrointestinal: soft, non-tender to palpation, bowel sounds heard. PEG tube site with dressing in place, no discharge. Neurological: Responds to noxious stimuli, left upper extremity is contracted Results Results 24hrs Laboratory Tests Test 12/19/18 12:55 12/19/18 17:44 12/19/18 20:29 12/20/18 00:12 Bedside Glucose 138 161 154 185 Test 12/20/18 04:43 12/20/18 05:18 12/20/18 09:00 White Blood Count 11.0 H Red Blood Count 3.13 L Hemoglobin 8.9 L Hematocrit 27.0 L Mean Corpuscular 86.3 Volume Mean Corpuscular 28.4 L Hemoglobin Mean Corpuscular 33.0 Hemoglobin Concent Red Cell 13.6 Distribution Width Platelet Count 413 Mean Platelet Volume 8.5 Immature 0.500 H Granulocytes % Neutrophils % 55.8 Lymphocytes % 32.8 Monocytes % 8.4 Eosinophils % 2.1 Basophils % 0.4 Nucleated Red Blood 0.0 Cells % Immature 0.060 H Granulocytes # Neutrophils # 6.2 Lymphocytes # 3.6 H Monocytes # 0.9 Eosinophils # 0.2 Basophils # 0.0 Nucleated Red Blood 0.0 Cells # Sodium Level 132 L Potassium Level 3.6 Chloride Level 98 Carbon Dioxide Level 26 Anion Gap 8 Blood Urea Nitrogen 13 Creatinine 0.54 Est Glomerular Filtrat Rate mL/min Glucose Level 148 Calcium Level 9.0 Phosphorus Level 3.1 Magnesium Level 1.9 Bedside Glucose 164 168 Medications Medication Current Medications Dextrose/Sodium Chloride 1,000 ml @ 75 mls/hr [id number] IV Last administered on 12/20/18at 09:02; Admin Dose 75 MLS/HR; Start 12/17/18 at 14:31 IV Flush (NS 3 ml) 3 ml PER PROTOCOL IV ; Start 12/17/18 at 15:00 Lorazepam (Ativan) 2 mg Q10MIN PRN IV seizure; Start 12/17/18 at 15:00 Ondansetron HCl (Zofran Inj) 4 mg Q6H PRN IV NAUSEA/VOMITING; Start 12/17/18 at 15:00 Acetaminophen (Tylenol Supp) 650 mg Q6H PRN [place] .PAIN 1-3 OR TEMP; Start 12/17/18 at 15:00 Pantoprazole (Protonix Iv) 40 mg DAILY@06 IV Last administered on 12/20/18at 05:18; Admin Dose 40 MG; Start 12/18/18 at 06:00 Hydralazine HCl (Apresoline) 10 mg Q4H PRN IV sbp >160; Start 12/17/18 at 15:00 Lorazepam (Ativan) 0.5 mg Q6H PRN IV anxiety; Start 12/17/18 at 15:00 Diagnostic Test (Pha) (Accu-Chek) 1 ea 02 XX ; Start 12/18/18 at 02:00 Miscellaneous Information 1 ea NOTE XX ; Start 12/17/18 at 15:00 Glucose (Glutose) 15 gm Q15M PRN PO DECREASED GLUCOSE; Start 12/17/18 at 15:00 Glucose (Glutose) 22.5 gm Q15M PRN PO DECREASED GLUCOSE; Start 12/17/18 at 15:00 Dextrose (D50w Syringe) 25 ml Q15M PRN IV DECREASED GLUCOSE; Start 12/17/18 at 15:00 Dextrose (D50w Syringe) 50 ml Q15M PRN IV DECREASED GLUCOSE; Start 12/17/18 at 15:00 Glucagon (Glucagen) 1 mg Q15M PRN IM DECREASED GLUCOSE; Start 12/17/18 at 15:00 Glucose (Glutose) 15 gm Q15M PRN BUCCAL DECREASED GLUCOSE; Start 12/17/18 at 15:00 Levetiracetam 125 mg/Dextrose 51.25 ml @ 205 mls/hr Q12 IV Last administered on 12/20/18 09:01; Admin Dose 205 MLS/HR; Start 12/17/18 at 21:00 Piperacillin Sod/ Tazobactam Sod 50 ml @ 100 mls/hr Q6 IVPB Last administered on 12/20/18 05:18; Admin Dose 100 MLS/HR; Start 12/17/18 at 18:00 Insulin Aspart (Novolog Insulin Pen) (Adult SC Insulin - Mild Algorithm)... Q4 SC Last administered on 12/20/18 09:10; Admin Dose 1 UNIT; Start 12/17/18 at 21:00 Miscellaneous Information (Pending [facility] For [facility]ound [facility]) This patient pinto... PRN PRN XX WOUND CARE; Start 12/18/18 at 12:30 Sodium Hypochlorite (Dakins Diluted (40)) 1 applic BID TP Last administered on 12/20/18 09:01; Admin Dose 1 APPLIC; Start 12/18/18 at 15:30 FANY ARMENDARIZ MD December 20, 2018 10:30
--- NOTE | 2018-12-20 13:34 | PN ---
Date/Time of Note Date/Time of Note DATE: 12/20/18 TIME: 13:34 Assessment/Plan VTE Prophylaxis Risk score (from Nsg)>0 risk: 7 SCD applied (from Nsg): Yes Pharmacological prophylaxis: other (scds) Lines/Catheters IV Catheter Type (from Nrs): Peripheral IV Urinary Cath still in place: Yes Reason Cath still needed: other (indicate) (monitor output) Assessment/Plan Hospital Course Assessment/Plan Assessment: Malfunctioning PEG tube -erythema and leakage, improved Dysphasia status post PEG placement CVA Severe dementia Coronary artery disease Epilepsy Plan: Attempted to flush again today G-tube with significant leakage around site. Keep n.p.o. PEG tube clamped, gastrostomy healing. Continue local wound care and dressing changes to g-tube site. Continue antibiotics We will reevaluate tomorrow for further improvement. May be able to resume enteral feedings soon if continues to improve. If not improved, PEG might need to be removed to allow stoma to heal for new plaque placement in 4 to 6 weeks Patient might need to initiate TPN if no improvement by tomorrow. Patient seen in collaboration with Dr. Goncalves Subjective: Unlikely ostomy will heal to the point of not leaking, will re-assess in am- if less leaking noted will start TF, however is leaking is still present, we will call family to discuss recommendations. Per family, they would like to avoid having G-tube removed and having another one later. If continues to improve in the next 1-2 days, may be able to resume feedings. Otherwise will need to start TPN and have the G-tube removed. Physical exam: Constitutional: alert, frail Psych: confusion Head: normocephalic, atraumatic Eyes: nl conjunctiva ENMT: nl external ears & nose Neck: supple Respiratory: clear to auscultation Cardiovascular: regular rate and rhythm Gastrointestinal: soft, nl liver, spleen, non-tender, other (g tube in place, thick white drainage around stoma site, mild erythema) Musculoskeletal: nl extremities to inspection Neurological: confused Result Diagram: 12/20/18 0443 12/20/18 0443 Results 24hrs Laboratory Tests Test 12/19/18 17:44 12/19/18 20:29 12/20/18 00:12 12/20/18 04:43 Bedside Glucose 161 154 185 White Blood Count 11.0 H Red Blood Count 3.13 L Hemoglobin 8.9 L Hematocrit 27.0 L Mean Corpuscular 86.3 Volume Mean Corpuscular 28.4 L Hemoglobin Mean Corpuscular 33.0 Hemoglobin Concent Red Cell 13.6 Distribution Width Platelet Count 413 Mean Platelet Volume 8.5 Immature 0.500 H Granulocytes % Neutrophils % 55.8 Lymphocytes % 32.8 Monocytes % 8.4 Eosinophils % 2.1 Basophils % 0.4 Nucleated Red Blood 0.0 Cells % Immature 0.060 H Granulocytes # Neutrophils # 6.2 Lymphocytes # 3.6 H Monocytes # 0.9 Eosinophils # 0.2 Basophils # 0.0 Nucleated Red Blood 0.0 Cells # Sodium Level 132 L Potassium Level 3.6 Chloride Level 98 Carbon Dioxide Level 26 Anion Gap 8 Blood Urea Nitrogen 13 Creatinine 0.54 Est Glomerular Filtrat Rate mL/min Glucose Level 148 Calcium Level 9.0 Phosphorus Level 3.1 Magnesium Level 1.9 Test 12/20/18 05:18 12/20/18 09:00 12/20/18 13:10 Bedside Glucose 164 168 184 Exam/Review of Systems Exam Vitals Vital Signs Date Temp Pulse Resp B/P (MAP) Pulse Ox O2 O2 Flow FiO2 Time Delivery Rate 12/20/18 98.1 74 16 159/70 98 07:42 (99) 12/17/18 Room Air 15:20 Intake and Output 12/19/18 12/19/18 12/20/18 1515:00 23:00 07:00 IntakeIntake Total 201.25 ml 726.25 ml 850 ml OutputOutput Total 800 ml 550 ml BalanceBalance 201.25 ml -73.75 ml 300 ml Results Results 24hrs Laboratory Tests Test 12/19/18 17:44 12/19/18 20:29 12/20/18 00:12 12/20/18 04:43 Bedside Glucose 161 154 185 White Blood Count 11.0 H Red Blood Count 3.13 L Hemoglobin 8.9 L Hematocrit 27.0 L Mean Corpuscular 86.3 Volume Mean Corpuscular 28.4 L Hemoglobin Mean Corpuscular 33.0 Hemoglobin Concent Red Cell 13.6 Distribution Width Platelet Count 413 Mean Platelet Volume 8.5 Immature 0.500 H Granulocytes % Neutrophils % 55.8 Lymphocytes % 32.8 Monocytes % 8.4 Eosinophils % 2.1 Basophils % 0.4 Nucleated Red Blood 0.0 Cells % Immature 0.060 H Granulocytes # Neutrophils # 6.2 Lymphocytes # 3.6 H Monocytes # 0.9 Eosinophils # 0.2 Basophils # 0.0 Nucleated Red Blood 0.0 Cells # Sodium Level 132 L Potassium Level 3.6 Chloride Level 98 Carbon Dioxide Level 26 Anion Gap 8 Blood Urea Nitrogen 13 Creatinine 0.54 Est Glomerular Filtrat Rate mL/min Glucose Level 148 Calcium Level 9.0 Phosphorus Level 3.1 Magnesium Level 1.9 Test 12/20/18 05:18 12/20/18 09:00 12/20/18 13:10 Bedside Glucose 164 168 184 Medications Medication Current Medications Dextrose/Sodium Chloride 1,000 ml @ 75 mls/hr [id number] IV Last administered on 12/20/18at 09:02; Admin Dose 75 MLS/HR; Start 12/17/18 at 14:31 IV Flush (NS 3 ml) 3 ml PER PROTOCOL IV ; Start 12/17/18 at 15:00 Lorazepam (Ativan) 2 mg Q10MIN PRN IV seizure; Start 12/17/18 at 15:00 Ondansetron HCl (Zofran Inj) 4 mg Q6H PRN IV NAUSEA/VOMITING; Start 12/17/18 at 15:00 Acetaminophen (Tylenol Supp) 650 mg Q6H PRN [place] .PAIN 1-3 OR TEMP; Start 12/17/18 at 15:00 Pantoprazole (Protonix Iv) 40 mg DAILY@06 IV Last administered on 12/20/18at 05:18; Admin Dose 40 MG; Start 12/18/18 at 06:00 Hydralazine HCl (Apresoline) 10 mg Q4H PRN IV sbp >160; Start 12/17/18 at 15:00 Lorazepam (Ativan) 0.5 mg Q6H PRN IV anxiety; Start 12/17/18 at 15:00 Diagnostic Test (Pha) (Accu-Chek) 1 ea 02 XX ; Start 12/18/18 at 02:00 Miscellaneous Information 1 ea NOTE XX ; Start 12/17/18 at 15:00 Glucose (Glutose) 15 gm Q15M PRN PO DECREASED GLUCOSE; Start 12/17/18 at 15:00 Glucose (Glutose) 22.5 gm Q15M PRN PO DECREASED GLUCOSE; Start 12/17/18 at 15:00 Dextrose (D50w Syringe) 25 ml Q15M PRN IV DECREASED GLUCOSE; Start 12/17/18 at 15:00 Dextrose (D50w Syringe) 50 ml Q15M PRN IV DECREASED GLUCOSE; Start 12/17/18 at 15:00 Glucagon (Glucagen) 1 mg Q15M PRN IM DECREASED GLUCOSE; Start 12/17/18 at 15:00 Glucose (Glutose) 15 gm Q15M PRN BUCCAL DECREASED GLUCOSE; Start 12/17/18 at 15:00 Levetiracetam 125 mg/Dextrose 51.25 ml @ 205 mls/hr Q12 IV Last administered on 12/20/18at 09:01; Admin Dose 205 MLS/HR; Start 12/17/18 at 21:00 Piperacillin Sod/ Tazobactam Sod 50 ml @ 100 mls/hr Q6 IVPB Last administered on 12/20/18at 12:03; Admin Dose 100 MLS/HR; Start 12/17/18 at 18:00 Insulin Aspart (Novolog Insulin Pen) (Adult SC Insulin - Mild Algorithm)... Q4 SC Last administered on 12/20/18at 13:14; Admin Dose 2 UNIT; Start 12/17/18 at 21:00 Miscellaneous Information (Pending [facility] Order For Wound Care) This patient pinto... PRN PRN XX WOUND CARE; Start 12/18/18 at 12:30 Sodium Hypochlorite (Dakins Diluted (1/40)) 1 applic BID TP Last administered on 12/20/18at 09:01; Admin Dose 1 APPLIC; Start 12/18/18 at 15:30 Bisacodyl (Dulcolax Supp) 10 mg DAILY PRN [place] CONSTIPATION; Start 12/20/18 at 10:30 Heparin Sodium (Porcine) (Heparin (5000 Units/1ml)) 5,000 unit BID SC ; Start 12/20/18 at 21:00 BRENNEN BAIRD December 20, 2018 13:34
[2018-12-20 14:53] VITALS: BP 142/63; PULSE 82; RESP 16
[2018-12-20 20:00] VITALS: BP 150/95; PULSE 78; RESP 17
[2018-12-20] MEDS: HEPARIN 5,000 UNIT/1 ML VIAL SC SCH (21:32)
[2018-12-21] MEDS: PIPER-TAZO 2.25 GM (PMX) 50 ML IVPB SCH ×5 (00:11→23:31)
[2018-12-21] MEDS: DEXTROSE 5%-0.45% NACL 1,000 ML IV SCH ×3 (00:11→19:46)
[2018-12-21] MEDS: Insulin NOVOLOG SS MILD Algorithm (NPO/TPN/ENTERAL FEEDS) SC SCH ×6 (00:42→21:15)
[2018-12-21] MEDS: ACCU-CHEK XX SCH (01:27)
[2018-12-21 01:30] VITALS: BP_SYST 12; PULSE 85; RESP 18
[2018-12-21] MEDS: PANTOPRAZOLE 40 MG INJ IV SCH (05:30)
[2018-12-21 07:43] VITALS: BP 137/82; PULSE 71; RESP 16
[2018-12-21] MEDS: LEVETIRACETAM IV SCH ×2 (09:14→21:16)
[2018-12-21] MEDS: DEXTROSE 5% IV SCH ×2 (09:14→21:16)
[2018-12-21] MEDS: DAKINS 0.0125%(1/40) 473 ML SOLUTION TP SCH ×2 (09:16→21:16)
[2018-12-21] MEDS: HEPARIN 5,000 UNIT/1 ML VIAL SC SCH ×2 (09:19→21:16)
[2018-12-21] MEDS ORDERED: MAGNESIUM SULFATE 2 GM/50 ML 50 ML IVPB ONE (09:30)
--- NOTE | 2018-12-21 11:49 | PN ---
Date/Time of Note Date/Time of Note DATE: 12/21/18 TIME: 11:43 Assessment/Plan VTE Prophylaxis Risk score (from Ns)>0 risk: 7 SCD applied (from Ns): Yes Pharmacological prophylaxis: other (scds) Lines/Catheters IV Catheter Type (from [facility]): Peripheral IV Urinary Cath still in place: Yes Reason Cath still needed: other (indicate) (monitor output) Assessment/Plan Hospital Course Assessment/Plan Assessment: Malfunctioning PEG tube -erythema and leakage, improved Dysphasia status post PEG placement CVA Severe dementia Coronary artery disease Epilepsy Plan: Spoke to the family in person- plan to restarted TF today- if leakage is noted- we then recommend removing G-tube allow stoma to heal prior to replacing with new gastrostomy tube While patient will require PEG placement and TPN while old stoma is healing. Start simethicone via G-tube Patient seen in collaboration with Dr. Goncalves Subjective: No overnight events G-tube flushed with 50 mL of water no leakage noted during/however patient continues to have frothy discharge at ostomy site. Family is currently at bedside patient appears comfortable. Physical exam: Constitutional: alert, frail Psych: confusion Head: normocephalic, atraumatic Eyes: nl conjunctiva ENMT: nl external ears & nose Neck: supple Respiratory: clear to auscultation Cardiovascular: regular rate and rhythm Gastrointestinal: soft, nl liver, spleen, non-tender, other (g tube in place, thick white drainage around stoma site, mild erythema) Musculoskeletal: nl extremities to inspection Neurological: confused Result Diagram: 12/21/18 0441 12/21/18 0441 Results 24hrs Laboratory Tests Test 12/20/18 13:10 12/20/18 17:49 12/20/18 21:27 12/21/18 00:39 Bedside Glucose 184 129 149 150 Test 12/21/18 04:41 12/21/18 05:31 12/21/18 09:13 White Blood Count 11.0 H Red Blood Count 3.22 L Hemoglobin 9.3 L Hematocrit 28.2 L Mean Corpuscular 87.6 Volume Mean Corpuscular 28.9 L Hemoglobin Mean Corpuscular 33.0 Hemoglobin Concent Red Cell 13.6 Distribution Width Platelet Count 358 Mean Platelet Volume 9.0 Immature 0.500 H Granulocytes % Neutrophils % 54.1 Lymphocytes % 34.3 Monocytes % 8.0 Eosinophils % 2.7 Basophils % 0.4 Nucleated Red Blood 0.0 Cells % Immature 0.060 H Granulocytes # Neutrophils # 5.9 Lymphocytes # 3.8 H Monocytes # 0.9 Eosinophils # 0.3 Basophils # 0.0 Nucleated Red Blood 0.0 Cells # Sodium Level 132 L Potassium Level 3.8 Chloride Level 100 Carbon Dioxide Level 25 Anion Gap 7 Blood Urea Nitrogen 9 Creatinine 0.56 Glucose Level 150 Calcium Level 8.9 Phosphorus Level 3.0 Magnesium Level 1.6 L Albumin 2.9 L Bedside Glucose 166 159 Exam/Review of Systems Exam Vitals Vital Signs Date Temp Pulse Resp B/P (MAP) Pulse Ox O2 O2 Flow FiO2 Time Delivery Rate 12/21/18 98.5 71 16 137/82 98 07:43 (100) 12/17/18 Room Air 15:20 Intake and Output 12/20/18 12/20/18 12/21/18 1515:00 23:00 07:00 IntakeIntake Total 150 ml 802.50 ml 725 ml OutputOutput Total 300 ml 700 ml 450 ml BalanceBalance -150 ml 102.50 ml 275 ml Results Results 24hrs Laboratory Tests Test 12/20/18 13:10 12/20/18 17:49 12/20/18 21:27 12/21/18 00:39 Bedside Glucose 184 129 149 150 Test 12/21/18 04:41 12/21/18 05:31 12/21/18 09:13 White Blood Count 11.0 H Red Blood Count 3.22 L Hemoglobin 9.3 L Hematocrit 28.2 L Mean Corpuscular 87.6 Volume Mean Corpuscular 28.9 L Hemoglobin Mean Corpuscular 33.0 Hemoglobin Concent Red Cell 13.6 Distribution Width Platelet Count 358 Mean Platelet Volume 9.0 Immature 0.500 H Granulocytes % Neutrophils % 54.1 Lymphocytes % 34.3 Monocytes % 8.0 Eosinophils % 2.7 Basophils % 0.4 Nucleated Red Blood 0.0 Cells % Immature 0.060 H Granulocytes # Neutrophils # 5.9 Lymphocytes # 3.8 H Monocytes # 0.9 Eosinophils # 0.3 Basophils # 0.0 Nucleated Red Blood 0.0 Cells # Sodium Level 132 L Potassium Level 3.8 Chloride Level 100 Carbon Dioxide Level 25 Anion Gap 7 Blood Urea Nitrogen 9 Creatinine 0.56 Glucose Level 150 Calcium Level 8.9 Phosphorus Level 3.0 Magnesium Level 1.6 L Albumin 2.9 L Bedside Glucose 166 159 Medications Medication Current Medications Dextrose/Sodium Chloride 1,000 ml @ 75 mls/hr [id number] IV Last administered on 12/21/18at 00:11; Admin Dose 75 MLS/HR; Start 12/17/18 at 14:31 IV Flush (NS 3 ml) 3 ml PER PROTOCOL IV ; Start 12/17/18 at 15:00 Lorazepam (Ativan) 2 mg Q10MIN PRN IV seizure; Start 12/17/18 at 15:00 Ondansetron HCl (Zofran Inj) 4 mg Q6H PRN IV NAUSEA/VOMITING; Start 12/17/18 at 15:00 Acetaminophen (Tylenol Supp) 650 mg Q6H PRN [place] .PAIN 1-3 OR TEMP; Start 12/17/18 at 15:00 Pantoprazole (Protonix Iv) 40 mg DAILY@06 IV Last administered on 12/21/18at 05:30; Admin Dose 40 MG; Start 12/18/18 at 06:00 Hydralazine HCl (Apresoline) 10 mg Q4H PRN IV sbp >160; Start 12/17/18 at 15:00 Lorazepam (Ativan) 0.5 mg Q6H PRN IV anxiety; Start 12/17/18 at 15:00 Diagnostic Test (Pha) (Accu-Chek) 1 ea 02 XX ; Start 12/18/18 at 02:00 Miscellaneous Information 1 ea NOTE XX ; Start 12/17/18 at 15:00 Glucose (Glutose) 15 gm Q15M PRN PO DECREASED GLUCOSE; Start 12/17/18 at 15:00 Glucose (Glutose) 22.5 gm Q15M PRN PO DECREASED GLUCOSE; Start 12/17/18 at 15:00 Dextrose (D50w Syringe) 25 ml Q15M PRN IV DECREASED GLUCOSE; Start 12/17/18 at 15:00 Dextrose (D50w Syringe) 50 ml Q15M PRN IV DECREASED GLUCOSE; Start 12/17/18 at 15:00 Glucagon (Glucagen) 1 mg Q15M PRN IM DECREASED GLUCOSE; Start 12/17/18 at 15:00 Glucose (Glutose) 15 gm Q15M PRN BUCCAL DECREASED GLUCOSE; Start 12/17/18 at 15:00 Levetiracetam 125 mg/Dextrose 51.25 ml @ 205 mls/hr Q12 IV Last administered on 12/21/18at 09:14; Admin Dose 205 MLS/HR; Start 12/17/18 at 21:00 Piperacillin Sod/ Tazobactam Sod 50 ml @ 100 mls/hr Q6 IVPB Last administered on 12/21/18at 05:30; Admin Dose 100 MLS/HR; Start 12/17/18 at 18:00 Insulin Aspart (Novolog Insulin Pen) (Adult SC Insulin - Mild Algorithm)... Q4 SC Last administered on 12/21/18 09:20; Admin Dose 1 UNIT; Start 12/17/18 at 21:00 Miscellaneous Information (Pending [facility] Order For Wound Care) This patient pinto... PRN PRN XX WOUND CARE; Start 12/18/18 at 12:30 Sodium Hypochlorite (Dakins Diluted (1/40)) 1 applic BID TP Last administered on 12/21/18at 09:16; Admin Dose 1 APPLIC; Start 12/18/18 at 15:30 Bisacodyl (Dulcolax Supp) 10 mg DAILY PRN [place] CONSTIPATION; Start 12/20/18 at 10:30 Heparin Sodium (Porcine) (Heparin (5000 Units/1ml)) 5,000 unit BID SC Last administered on 12/21/18 09:19; Admin Dose 5,000 UNIT; Start 12/20/18 at 21:00 Simethicone (Mylicon) 80 mg Q6 GTB ; Start 12/21/18 at 12:00 BRENNEN BAIRD December 21, 2018 11:49
--- NOTE | 2018-12-21 11:57 | PN ---
Date/Time of Note Date/Time of Note DATE: 12/21/18 TIME: 11:57 Assessment/Plan VTE Prophylaxis Risk score (from Nsg)>0 risk: 7 SCD applied (from Ns): Yes Pharmacological prophylaxis: heparin Lines/Catheters IV Catheter Type (from Nrsg): Peripheral IV Urinary Cath still in place: Yes Reason Cath still needed: terminal illness/intractable pain Assessment/Plan Assessment/Plan 1. PEG site malfunction - GI on board and appreciate recommendations. Will try tube feeding and if not successful, may reimage vs remove and start TPN 2. 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 Diabetes mellitus - Insulin as needed 4. Dysphasia - Secondary to history of CVA dementia - PEG in place and will try tube feeds today 5. Epilepsy - IV Keppra for now 6. Disposition - Discussed plan with GI. Will try tube feeds and monitor for any leakage. Result Diagram: 12/21/18 0441 12/21/18 0441 Results 24hrs Laboratory Tests Test 12/20/18 13:10 12/20/18 17:49 12/20/18 21:27 12/21/18 00:39 Bedside Glucose 184 129 149 150 Test 12/21/18 04:41 12/21/18 05:31 12/21/18 09:13 White Blood Count 11.0 H Red Blood Count 3.22 L Hemoglobin 9.3 L Hematocrit 28.2 L Mean Corpuscular 87.6 Volume Mean Corpuscular 28.9 L Hemoglobin Mean Corpuscular 33.0 Hemoglobin Concent Red Cell 13.6 Distribution Width Platelet Count 358 Mean Platelet Volume 9.0 Immature 0.500 H Granulocytes % Neutrophils % 54.1 Lymphocytes % 34.3 Monocytes % 8.0 Eosinophils % 2.7 Basophils % 0.4 Nucleated Red Blood 0.0 Cells % Immature 0.060 H Granulocytes # Neutrophils # 5.9 Lymphocytes # 3.8 H Monocytes # 0.9 Eosinophils # 0.3 Basophils # 0.0 Nucleated Red Blood 0.0 Cells # Sodium Level 132 L Potassium Level 3.8 Chloride Level 100 Carbon Dioxide Level 25 Anion Gap 7 Blood Urea Nitrogen 9 Creatinine 0.56 Glucose Level 150 Calcium Level 8.9 Phosphorus Level 3.0 Magnesium Level 1.6 L Albumin 2.9 L Bedside Glucose 166 159 Subjective 24 Hr Interval Summary Free Text/Dictation Patient alert but not verbal. No acute distress appreciated. No overnight events. Exam/Review of Systems Exam Vitals Vital Signs Date Temp Pulse Resp B/P (MAP) Pulse Ox O2 O2 Flow FiO2 Time Delivery Rate 12/21/18 98.5 71 16 137/82 98 07:43 (100) 12/17/18 Room Air 15:20 Intake and Output 12/20/18 12/20/18 12/21/18 1515:00 23:00 07:00 IntakeIntake Total 150 ml 802.50 ml 725 ml OutputOutput Total 300 ml 700 ml 450 ml BalanceBalance -150 ml 102.50 ml 275 ml Exam General: Patient is laying in bed alert but nonverbal. tracking Neck: Supple, nontender, midline Respiratory: Clear to auscultation bilaterally. no wheezing or rhonchi Cardiovascular: regular rate and rhythm, no obvious murmurs Gastrointestinal: soft, non-tender to palpation, bowel sounds heard. PEG tube site without discharge appreciated. Neurological: Responds to noxious stimuli, left upper extremity is contracted Results Results 24hrs Laboratory Tests Test 12/20/18 13:10 12/20/18 17:49 12/20/18 21:27 12/21/18 00:39 Bedside Glucose 184 129 149 150 Test 12/21/18 04:41 12/21/18 05:31 12/21/18 09:13 White Blood Count 11.0 H Red Blood Count 3.22 L Hemoglobin 9.3 L Hematocrit 28.2 L Mean Corpuscular 87.6 Volume Mean Corpuscular 28.9 L Hemoglobin Mean Corpuscular 33.0 Hemoglobin Concent Red Cell 13.6 Distribution Width Platelet Count 358 Mean Platelet Volume 9.0 Immature 0.500 H Granulocytes % Neutrophils % 54.1 Lymphocytes % 34.3 Monocytes % 8.0 Eosinophils % 2.7 Basophils % 0.4 Nucleated Red Blood 0.0 Cells % Immature 0.060 H Granulocytes # Neutrophils # 5.9 Lymphocytes # 3.8 H Monocytes # 0.9 Eosinophils # 0.3 Basophils # 0.0 Nucleated Red Blood 0.0 Cells # Sodium Level 132 L Potassium Level 3.8 Chloride Level 100 Carbon Dioxide Level 25 Anion Gap 7 Blood Urea Nitrogen 9 Creatinine 0.56 Glucose Level 150 Calcium Level 8.9 Phosphorus Level 3.0 Magnesium Level 1.6 L Albumin 2.9 L Bedside Glucose 166 159 Medications Medication Current Medications Dextrose/Sodium Chloride 1,000 ml @ 75 mls/hr [id number] IV Last administered on 12/21/18at 00:11; Admin Dose 75 MLS/HR; Start 12/17/18 at 14:31 IV Flush (NS 3 ml) 3 ml PER PROTOCOL IV ; Start 12/17/18 at 15:00 Lorazepam (Ativan) 2 mg Q10MIN PRN IV seizure; Start 12/17/18 at 15:00 Ondansetron HCl (Zofran Inj) 4 mg Q6H PRN IV NAUSEA/VOMITING; Start 12/17/18 at 15:00 Acetaminophen (Tylenol Supp) 650 mg Q6H PRN [place] .PAIN 1-3 OR TEMP; Start 12/17/18 at 15:00 Pantoprazole (Protonix Iv) 40 mg DAILY@06 IV Last administered on 12/21/18at 05:30; Admin Dose 40 MG; Start 12/18/18 at 06:00 Hydralazine HCl (Apresoline) 10 mg Q4H PRN IV sbp >160; Start 12/17/18 at 15:00 Lorazepam (Ativan) 0.5 mg Q6H PRN IV anxiety; Start 12/17/18 at 15:00 Diagnostic Test (Pha) (Accu-Chek) 1 ea 02 XX ; Start 12/18/18 at 02:00 Miscellaneous Information 1 ea NOTE XX ; Start 12/17/18 at 15:00 Glucose (Glutose) 15 gm Q15M PRN PO DECREASED GLUCOSE; Start 12/17/18 at 15:00 Glucose (Glutose) 22.5 gm Q15M PRN PO DECREASED GLUCOSE; Start 12/17/18 at 15:00 Dextrose (D50w Syringe) 25 ml Q15M PRN IV DECREASED GLUCOSE; Start 12/17/18 at 15:00 Dextrose (D50w Syringe) 50 ml Q15M PRN IV DECREASED GLUCOSE; Start 12/17/18 at 15:00 Glucagon (Glucagen) 1 mg Q15M PRN IM DECREASED GLUCOSE; Start 12/17/18 at 15:00 Glucose (Glutose) 15 gm Q15M PRN BUCCAL DECREASED GLUCOSE; Start 12/17/18 at 15:00 Levetiracetam 125 mg/Dextrose 51.25 ml @ 205 mls/hr Q12 IV Last administered on 12/21/18 09:14; Admin Dose 205 MLS/HR; Start 12/17/18 at 21:00 Piperacillin Sod/ Tazobactam Sod 50 ml @ 100 mls/hr Q6 IVPB Last administered on 12/21/18at 05:30; Admin Dose 100 MLS/HR; Start 12/17/18 at 18:00 Insulin Aspart (Novolog Insulin Pen) (Adult SC Insulin - Mild Algorithm)... Q4 SC Last administered on 12/21/18 09:20; Admin Dose 1 UNIT; Start 12/17/18 at 21:00 Miscellaneous Information (Pending Santyl Order For Wound Care) This patient pinto... PRN PRN XX WOUND CARE; Start 12/18/18 at 12:30 Sodium Hypochlorite (Dakins Diluted ()) 1 applic BID TP Last administered on 12/21/18at 09:16; Admin Dose 1 APPLIC; Start 12/18/18 at 15:30 Bisacodyl (Dulcolax Supp) 10 mg DAILY PRN [place] CONSTIPATION; Start 12/20/18 at 10:30 Heparin Sodium (Porcine) (Heparin (5000 Units/1ml)) 5,000 unit BID SC Last administered on 12/21/18 09:19; Admin Dose 5,000 UNIT; Start 12/20/18 at 21:00 Simethicone (Mylicon) 80 mg Q6 GTB ; Start 12/21/18 at 12:00 FANY ARMENDARIZ MD December 21, 2018 11:57
[2018-12-21 14:26] VITALS: BP 166/67; PULSE 91; RESP 16
[2018-12-21 20:03] VITALS: BP 125/74; PULSE 74; RESP 17
[2018-12-22] MEDS: Insulin NOVOLOG SS MILD Algorithm (NPO/TPN/ENTERAL FEEDS) SC SCH ×6 (00:55→21:26)
[2018-12-22] MEDS: DEXTROSE 5%-0.45% NACL 1,000 ML IV SCH (01:11)
[2018-12-22 01:56] VITALS: BP 138/61; PULSE 82; RESP 17
[2018-12-22] MEDS: ACCU-CHEK XX SCH (02:00)
[2018-12-22] MEDS: PIPER-TAZO 2.25 GM (PMX) 50 ML IVPB SCH ×3 (05:14→18:43)
[2018-12-22] MEDS: PANTOPRAZOLE 40 MG INJ IV SCH (05:14)
[2018-12-22 08:00] VITALS: BP 135/60; PULSE 81; RESP 19
[2018-12-22] MEDS: HEPARIN 5,000 UNIT/1 ML VIAL SC SCH ×2 (09:05→21:14)
[2018-12-22] MEDS: LEVETIRACETAM IV SCH ×2 (09:06→22:24)
[2018-12-22] MEDS: DEXTROSE 5% IV SCH ×2 (09:06→22:24)
[2018-12-22] MEDS: DAKINS 0.0125%(1/40) 473 ML SOLUTION TP SCH ×2 (09:14→22:24)
[2018-12-22] MEDS: POTASSIUM CHLORIDE 100 ML IVPB SCH ×2 (10:55→15:00)
--- NOTE | 2018-12-22 12:15 | PN ---
Date/Time of Note Date/Time of Note DATE: 12/22/18 TIME: 12:09 Assessment/Plan VTE Prophylaxis Risk score (from Nsg)>0 risk: 7 SCD applied (from Ns): Yes Pharmacological prophylaxis: heparin Lines/Catheters IV Catheter Type (from Nrsg): Peripheral IV Urinary Cath still in place: Yes Reason Cath still needed: terminal illness/intractable pain Assessment/Plan Assessment/Plan 1. PEG site malfunction - Tube feeding currently at 30 cc/hr with goal of 50. Does not appear to be leakage or irritation at site - GI on board and appreciate recommendations. 2. 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 Diabetes mellitus - Insulin as needed 4. Dysphasia - Secondary to history of CVA dementia - PEG in place and will try tube feeds today 5. Epilepsy - IV Keppra for now 6. Disposition - Continue tube feeding with goal 50cc/hr. If no further leakage, will d/c home once goal reached Result Diagram: 12/22/18 0441 12/22/18 0441 Results 24hrs Laboratory Tests Test 12/21/18 13:20 12/21/18 18:17 12/21/18 21:12 12/22/18 00:53 Bedside Glucose 117 179 159 213 Test 12/22/18 04:40 12/22/18 04:41 12/22/18 09:04 Bedside Glucose 205 182 White Blood Count 11.0 H Red Blood Count 3.05 L Hemoglobin 8.7 L Hematocrit 26.1 L Mean Corpuscular 85.6 Volume Mean Corpuscular 28.5 L Hemoglobin Mean Corpuscular 33.3 Hemoglobin Concent Red Cell 13.6 Distribution Width Platelet Count 435 #H Mean Platelet Volume 8.5 Immature 0.500 H Granulocytes % Neutrophils % 59.6 Lymphocytes % 30.0 Monocytes % 7.4 Eosinophils % 2.2 Basophils % 0.3 Nucleated Red Blood 0.0 Cells % Immature 0.060 H Granulocytes # Neutrophils # 6.6 Lymphocytes # 3.3 H Monocytes # 0.8 Eosinophils # 0.2 Basophils # 0.0 Nucleated Red Blood 0.0 Cells # Sodium Level 133 L Potassium Level 3.4 L Chloride Level 101 Carbon Dioxide Level 24 Anion Gap 8 Blood Urea Nitrogen 9 Creatinine 0.58 Glucose Level 192 Calcium Level 8.6 Phosphorus Level 2.8 Magnesium Level 1.9 Albumin 2.8 L Subjective 24 Hr Interval Summary Free Text/Dictation Patient remains stable and in no acute distress. Tolerating tube feeds and no erythema surrounding site. Discussed with daughter at bedside. Exam/Review of Systems Exam Vitals Vital Signs Date Temp Pulse Resp B/P (MAP) Pulse Ox O2 O2 Flow FiO2 Time Delivery Rate 12/22/18 98.6 81 19 135/60 99 08:00 (85) Intake and Output 12/21/18 12/21/18 12/22/18 1515:00 23:00 07:00 IntakeIntake Total 201.25 ml 976.25 ml 650 ml OutputOutput Total 600 ml 500 ml BalanceBalance 201.25 ml 376.25 ml 150 ml Exam General: Patient is laying in bed alert but nonverbal. tracking Neck: Supple, nontender, midline Respiratory: Clear to auscultation bilaterally. no wheezing or rhonchi Cardiovascular: regular rate and rhythm, no obvious murmurs Gastrointestinal: soft, non-tender to palpation, bowel sounds heard. PEG tube site with some moisture on dressing. no erythema or frothing noted Ext: left upper extremity contracted. no edema appreciated Results Results 24hrs Laboratory Tests Test 12/21/18 13:20 12/21/18 18:17 12/21/18 21:12 12/22/18 00:53 Bedside Glucose 117 179 159 213 Test 12/22/18 04:40 12/22/18 04:41 12/22/18 09:04 Bedside Glucose 205 182 White Blood Count 11.0 H Red Blood Count 3.05 L Hemoglobin 8.7 L Hematocrit 26.1 L Mean Corpuscular 85.6 Volume Mean Corpuscular 28.5 L Hemoglobin Mean Corpuscular 33.3 Hemoglobin Concent Red Cell 13.6 Distribution Width Platelet Count 435 #H Mean Platelet Volume 8.5 Immature 0.500 H Granulocytes % Neutrophils % 59.6 Lymphocytes % 30.0 Monocytes % 7.4 Eosinophils % 2.2 Basophils % 0.3 Nucleated Red Blood 0.0 Cells % Immature 0.060 H Granulocytes # Neutrophils # 6.6 Lymphocytes # 3.3 H Monocytes # 0.8 Eosinophils # 0.2 Basophils # 0.0 Nucleated Red Blood 0.0 Cells # Sodium Level 133 L Potassium Level 3.4 L Chloride Level 101 Carbon Dioxide Level 24 Anion Gap 8 Blood Urea Nitrogen 9 Creatinine 0.58 Glucose Level 192 Calcium Level 8.6 Phosphorus Level 2.8 Magnesium Level 1.9 Albumin 2.8 L Medications Medication Current Medications Dextrose/Sodium Chloride 1,000 ml @ 75 mls/hr [id number] IV Last administered on 12/21/18at 19:46; Admin Dose 75 MLS/HR; Start 12/17/18 at 14:31 IV Flush (NS 3 ml) 3 ml PER PROTOCOL IV ; Start 12/17/18 at 15:00 Lorazepam (Ativan) 2 mg Q10MIN PRN IV seizure; Start 12/17/18 at 15:00 Ondansetron HCl (Zofran Inj) 4 mg Q6H PRN IV NAUSEA/VOMITING; Start 12/17/18 at 15:00 Acetaminophen (Tylenol Supp) 650 mg Q6H PRN [place] .PAIN 1-3 OR TEMP; Start 12/17/18 at 15:00 Pantoprazole (Protonix Iv) 40 mg DAILY@06 IV Last administered on 12/22/18at 05:14; Admin Dose 40 MG; Start 12/18/18 at 06:00 Hydralazine HCl (Apresoline) 10 mg Q4H PRN IV sbp >160; Start 12/17/18 at 15:00 Lorazepam (Ativan) 0.5 mg Q6H PRN IV anxiety; Start 12/17/18 at 15:00 Diagnostic Test (Pha) (Accu-Chek) 1 ea 02 XX ; Start 12/18/18 at 02:00 Miscellaneous Information 1 ea NOTE XX ; Start 12/17/18 at 15:00 Glucose (Glutose) 15 gm Q15M PRN PO DECREASED GLUCOSE; Start 12/17/18 at 15:00 Glucose (Glutose) 22.5 gm Q15M PRN PO DECREASED GLUCOSE; Start 12/17/18 at 15:00 Dextrose (D50w Syringe) 25 ml Q15M PRN IV DECREASED GLUCOSE; Start 12/17/18 at 15:00 Dextrose (D50w Syringe) 50 ml Q15M PRN IV DECREASED GLUCOSE; Start 12/17/18 at 15:00 Glucagon (Glucagen) 1 mg Q15M PRN IM DECREASED GLUCOSE; Start 12/17/18 at 15:00 Glucose (Glutose) 15 gm Q15M PRN BUCCAL DECREASED GLUCOSE; Start 12/17/18 at 15:00 Levetiracetam 125 mg/Dextrose 51.25 ml @ 205 mls/hr Q12 IV Last administered on 12/22/18 09:06; Admin Dose 205 MLS/HR; Start 12/17/18 at 21:00 Piperacillin Sod/ Tazobactam Sod 50 ml @ 100 mls/hr Q6 IVPB Last administered on 12/22/18 05:14; Admin Dose 100 MLS/HR; Start 12/17/18 at 18:00 Insulin Aspart (Novolog Insulin Pen) (Adult SC Insulin - Mild Algorithm)... Q4 SC Last administered on 12/22/18 09:14; Admin Dose 2 UNIT; Start 12/17/18 at 21:00 Miscellaneous Information (Pending Santyl Order For Wound Care) This patient pinto... PRN PRN XX WOUND CARE; Start 12/18/18 at 12:30 Sodium Hypochlorite (Dakins Diluted (40)) 1 applic BID TP Last administered o n 12/22/18 09:14; Admin Dose 1 APPLIC; Start 12/18/18 at 15:30 Bisacodyl (Dulcolax Supp) 10 mg DAILY PRN [place] CONSTIPATION; Start 12/20/18 at 10:30 Heparin Sodium (Porcine) (Heparin (5000 Units/1ml)) 5,000 unit BID SC Last administered on 12/22/18 09:05; Admin Dose 5,000 UNIT; Start 12/20/18 at 21:00 Simethicone (Mylicon) 80 mg Q6 GTB Last administered on 12/22/18 05:14; Admin Dose 80 MG; Start 12/21/18 at 12:00 Potassium Chloride 100 ml @ 50 mls/hr Q2H IVPB Last administered on 12/22/18 10:55; Admin Dose 50 MLS/HR; Start 12/22/18 at 09:30; Stop 12/22/18 at 13:29 FANY ARMENDARIZ MD December 22, 2018 12:15
--- NOTE | 2018-12-22 13:06 | PN ---
Date/Time of Note Date/Time of Note DATE: 12/22/18 TIME: 13:04 Assessment/Plan VTE Prophylaxis Risk score (from Ns)>0 risk: 7 SCD applied (from Ns): Yes Pharmacological prophylaxis: other (scds) Lines/Catheters IV Catheter Type (from Nrs): Peripheral IV Urinary Cath still in place: Yes Reason Cath still needed: other (indicate) (monitor output) Assessment/Plan Hospital Course Assessment/Plan Assessment: Malfunctioning PEG tube -erythema and leakage, improved Dysphasia status post PEG placement CVA Severe dementia Coronary artery disease Epilepsy Plan: Min leakage at 30ml/hr- will increase TF to 50ml goal rate- to fully assess leakage. Continue simethicone via G-tube Continue ABX- as ordered Patient seen in collaboration with Dr. Goncalves Subjective: No leakage noted with 20ml/hr - min with 30ml/hr- family stats site has greatly improved since admission. Pt appears comfortable, discussed plan with patients daughter. Physical exam: Constitutional: alert, frail Psych: confusion Head: normocephalic, atraumatic Eyes: nl conjunctiva ENMT: nl external ears & nose Neck: supple Respiratory: clear to auscultation Cardiovascular: regular rate and rhythm Gastrointestinal: soft, nl liver, spleen, non-tender, other (g tube in place, thick white drainage around stoma site, mild erythema) Musculoskeletal: nl extremities to inspection Neurological: confused Result Diagram: 12/22/18 0441 12/22/18440 Results 24hrs Laboratory Tests Test 12/21/18 13:20 12/21/18 18:17 12/21/18 21:12 12/22/18 00:53 Bedside Glucose 117 179 159 213 Test 12/22/18 04:40 12/22/18 04:41 12/22/18 09:04 Bedside Glucose 205 182 White Blood Count 11.0 H Red Blood Count 3.05 L Hemoglobin 8.7 L Hematocrit 26.1 L Mean Corpuscular 85.6 Volume Mean Corpuscular 28.5 L Hemoglobin Mean Corpuscular 33.3 Hemoglobin Concent Red Cell 13.6 Distribution Width Platelet Count 435 #H Mean Platelet Volume 8.5 Immature 0.500 H Granulocytes % Neutrophils % 59.6 Lymphocytes % 30.0 Monocytes % 7.4 Eosinophils % 2.2 Basophils % 0.3 Nucleated Red Blood 0.0 Cells % Immature 0.060 H Granulocytes # Neutrophils # 6.6 Lymphocytes # 3.3 H Monocytes # 0.8 Eosinophils # 0.2 Basophils # 0.0 Nucleated Red Blood 0.0 Cells # Sodium Level 133 L Potassium Level 3.4 L Chloride Level 101 Carbon Dioxide Level 24 Anion Gap 8 Blood Urea Nitrogen 9 Creatinine 0.58 Glucose Level 192 Calcium Level 8.6 Phosphorus Level 2.8 Magnesium Level 1.9 Albumin 2.8 L Exam/Review of Systems Exam Vitals Vital Signs Date Temp Pulse Resp B/P (MAP) Pulse Ox O2 O2 Flow FiO2 Time Delivery Rate 12/22/18 98.6 81 19 135/60 99 08:00 (85) Intake and Output 12/21/18 12/21/18 12/22/18 1515:00 23:00 07:00 IntakeIntake Total 201.25 ml 976.25 ml 650 ml OutputOutput Total 600 ml 500 ml BalanceBalance 201.25 ml 376.25 ml 150 ml Results Results 24hrs Laboratory Tests Test 12/21/18 13:20 12/21/18 18:17 12/21/18 21:12 12/22/18 00:53 Bedside Glucose 117 179 159 213 Test 12/22/18 04:40 12/22/18 04:41 12/22/18 09:04 Bedside Glucose 205 182 White Blood Count 11.0 H Red Blood Count 3.05 L Hemoglobin 8.7 L Hematocrit 26.1 L Mean Corpuscular 85.6 Volume Mean Corpuscular 28.5 L Hemoglobin Mean Corpuscular 33.3 Hemoglobin Concent Red Cell 13.6 Distribution Width Platelet Count 435 #H Mean Platelet Volume 8.5 Immature 0.500 H Granulocytes % Neutrophils % 59.6 Lymphocytes % 30.0 Monocytes % 7.4 Eosinophils % 2.2 Basophils % 0.3 Nucleated Red Blood 0.0 Cells % Immature 0.060 H Granulocytes # Neutrophils # 6.6 Lymphocytes # 3.3 H Monocytes # 0.8 Eosinophils # 0.2 Basophils # 0.0 Nucleated Red Blood 0.0 Cells # Sodium Level 133 L Potassium Level 3.4 L Chloride Level 101 Carbon Dioxide Level 24 Anion Gap 8 Blood Urea Nitrogen 9 Creatinine 0.58 Glucose Level 192 Calcium Level 8.6 Phosphorus Level 2.8 Magnesium Level 1.9 Albumin 2.8 L Medications Medication Current Medications Dextrose/Sodium Chloride 1,000 ml @ 75 mls/hr [id number] IV Last administered on 12/21/18at 19:46; Admin Dose 75 MLS/HR; Start 12/17/18 at 14:31 IV Flush (NS 3 ml) 3 ml PER PROTOCOL IV ; Start 12/17/18 at 15:00 Lorazepam (Ativan) 2 mg Q10MIN PRN IV seizure; Start 12/17/18 at 15:00 Ondansetron HCl (Zofran Inj) 4 mg Q6H PRN IV NAUSEA/VOMITING; Start 12/17/18 at 15:00 Acetaminophen (Tylenol Supp) 650 mg Q6H PRN [place] .PAIN 1-3 OR TEMP; Start 12/17/18 at 15:00 Pantoprazole (Protonix Iv) 40 mg DAILY@06 IV Last administered on 12/22/18at 05:14; Admin Dose 40 MG; Start 12/18/18 at 06:00 Hydralazine HCl (Apresoline) 10 mg Q4H PRN IV sbp >160; Start 12/17/18 at 15:00 Lorazepam (Ativan) 0.5 mg Q6H PRN IV anxiety; Start 12/17/18 at 15:00 Diagnostic Test (Pha) (Accu-Chek) 1 ea 02 XX ; Start 12/18/18 at 02:00 Miscellaneous Information 1 ea NOTE XX ; Start 12/17/18 at 15:00 Glucose (Glutose) 15 gm Q15M PRN PO DECREASED GLUCOSE; Start 12/17/18 at 15:00 Glucose (Glutose) 22.5 gm Q15M PRN PO DECREASED GLUCOSE; Start 12/17/18 at 15:00 Dextrose (D50w Syringe) 25 ml Q15M PRN IV DECREASED GLUCOSE; Start 12/17/18 at 15:00 Dextrose (D50w Syringe) 50 ml Q15M PRN IV DECREASED GLUCOSE; Start 12/17/18 at 15:00 Glucagon (Glucagen) 1 mg Q15M PRN IM DECREASED GLUCOSE; Start 12/17/18 at 15:00 Glucose (Glutose) 15 gm Q15M PRN BUCCAL DECREASED GLUCOSE; Start 12/17/18 at 15:00 Levetiracetam 125 mg/Dextrose 51.25 ml @ 205 mls/hr Q12 IV Last administered on 12/22/18at 09:06; Admin Dose 205 MLS/HR; Start 12/17/18 at 21:00 Piperacillin Sod/ Tazobactam Sod 50 ml @ 100 mls/hr Q6 IVPB Last administered on 12/22/18 05:14; Admin Dose 100 MLS/HR; Start 12/17/18 at 18:00 Insulin Aspart (Novolog Insulin Pen) (Adult SC Insulin - Mild Algorithm)... Q4 SC Last administered on 12/22/18 09:14; Admin Dose 2 UNIT; Start 12/17/18 at 21:00 Miscellaneous Information (Pending Santyl Order For Wound Care) This patient pinto... PRN PRN XX WOUND CARE; Start 12/18/18 at 12:30 Sodium Hypochlorite (Dakins Diluted ()) 1 applic BID TP Last administered on 12/22/18 09:14; Admin Dose 1 APPLIC; Start 12/18/18 at 15:30 Bisacodyl (Dulcolax Supp) 10 mg DAILY PRN [place] CONSTIPATION; Start 12/20/18 at 10:30 Heparin Sodium (Porcine) (Heparin (5000 Units/1ml)) 5,000 unit BID SC Last administered on 12/22/18 09:05; Admin Dose 5,000 UNIT; Start 12/20/18 at 21:00 Simethicone (Mylicon) 80 mg Q6 GTB Last administered on 12/22/18 05:14; Admin Dose 80 MG; Start 12/21/18 at 12:00 Potassium Chloride 100 ml @ 50 mls/hr Q2H IVPB Last administered on 12/22/18 10:55; Admin Dose 50 MLS/HR; Start 12/22/18 at 09:30; Stop 12/22/18 at 13:29 BRENNEN BAIRD December 22, 2018 13:06
[2018-12-22 15:20] VITALS: BP 150/69; PULSE 84; RESP 17
[2018-12-22 19:53] VITALS: BP 158/58; PULSE 93; RESP 18
[2018-12-22] MEDS ORDERED: FLUCONAZOLE 200 MG (PMX) 100 ML IVPB ONE (21:00)
[2018-12-22] MEDS: NYSTATIN 15 GM CR TOP SCH (22:23)
[2018-12-23] MEDS: PIPER-TAZO 2.25 GM (PMX) 50 ML IVPB SCH ×3 (00:29→12:00)
[2018-12-23] MEDS: Insulin NOVOLOG SS MILD Algorithm (NPO/TPN/ENTERAL FEEDS) SC SCH ×5 (00:35→17:34)
[2018-12-23 01:21] VITALS: BP 143/63; PULSE 85; RESP 18
[2018-12-23] MEDS: ACCU-CHEK XX SCH (01:25)
[2018-12-23] MEDS: PANTOPRAZOLE 40 MG INJ IV SCH (05:32)
[2018-12-23 08:13] VITALS: BP 134/60; PULSE 81; RESP 17
[2018-12-23] MEDS: LEVETIRACETAM IV SCH (09:12)
[2018-12-23] MEDS: DEXTROSE 5% IV SCH (09:12)
[2018-12-23] MEDS: HEPARIN 5,000 UNIT/1 ML VIAL SC SCH (09:14)
[2018-12-23] MEDS: DAKINS 0.0125%(1/40) 473 ML SOLUTION TP SCH (09:15)
[2018-12-23] MEDS: NYSTATIN 15 GM CR TOP SCH (09:16)
--- NOTE | 2018-12-23 10:57 | PN ---
Date/Time of Note Date/Time of Note DATE: 12/23/18 TIME: 10:55 Assessment/Plan VTE Prophylaxis Risk score (from Ns)>0 risk: 7 SCD applied (from Ns): Yes Pharmacological prophylaxis: heparin Lines/Catheters IV Catheter Type (from Nrsg): Peripheral IV Urinary Cath still in place: Yes Reason Cath still needed: terminal illness/intractable pain Assessment/Plan Assessment/Plan 1. PEG site malfunction- resolved - patient is tolerating tube feeds at goal with no leakage noted. - GI on board and appreciate recommendations. 2. 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 Diabetes mellitus - Insulin as needed 4. Dysphasia - Secondary to history of CVA dementia - PEG in place 5. Epilepsy - resume Keppra via Gtube 6. Disposition - Medically stable for discharge home Result Diagram: 12/23/18 0450 12/23/18 0450 Results 24hrs Laboratory Tests Test 12/22/18 12:47 12/22/18 17:45 12/22/18 21:23 12/23/18 00:32 Bedside Glucose 185 193 170 162 Test 12/23/18 04:50 12/23/18 05:40 12/23/18 09:12 White Blood Count 11.7 H Red Blood Count 3.12 L Hemoglobin 8.9 L Hematocrit 27.7 L Mean Corpuscular 88.8 Volume Mean Corpuscular 28.5 L Hemoglobin Mean Corpuscular 32.1 Hemoglobin Concent Red Cell 13.8 Distribution Width Platelet Count 367 Mean Platelet Volume 8.5 Immature 0.300 Granulocytes % Neutrophils % 56.3 Lymphocytes % 31.5 Monocytes % 9.2 Eosinophils % 2.4 Basophils % 0.3 Nucleated Red Blood 0.0 Cells % Immature 0.040 H Granulocytes # Neutrophils # 6.6 Lymphocytes # 3.7 H Monocytes # 1.1 H Eosinophils # 0.3 Basophils # 0.0 Nucleated Red Blood 0.0 Cells # Sodium Level 134 L Potassium Level 4.3 Chloride Level 103 Carbon Dioxide Level 25 Anion Gap 6 Blood Urea Nitrogen 12 Creatinine 0.55 Glucose Level 175 Calcium Level 8.6 Phosphorus Level 2.6 Magnesium Level 1.8 Albumin 2.9 L Bedside Glucose 197 180 Subjective 24 Hr Interval Summary Free Text/Dictation Patient remains stable and no acute distress. No overnight events. Patient is tolerating tube feeds at goal. Exam/Review of Systems Exam Vitals Vital Signs Date Temp Pulse Resp B/P (MAP) Pulse Ox O2 O2 Flow FiO2 Time Delivery Rate 12/23/18 98.0 81 17 134/60 100 08:13 (84) Intake and Output 12/22/18 12/22/18 12/23/18 1515:00 23:00 07:00 IntakeIntake Total 601.25 ml 551.25 ml 820 ml OutputOutput Total 1000 ml 400 ml BalanceBalance -398.75 ml 151.25 ml 820 ml Exam General: Patient is laying in bed alert but nonverbal. tracking Neck: Supple, nontender, midline Respiratory: Clear to auscultation bilaterally. no wheezing or rhonchi Cardiovascular: regular rate and rhythm, no obvious murmurs Gastrointestinal: soft, non-tender to palpation, bowel sounds heard. PEG tube site covered with dressing, CDI. no erythema or frothing noted Ext: left upper extremity contracted. no edema appreciated Results Results 24hrs Laboratory Tests Test 12/22/18 12:47 12/22/18 17:45 12/22/18 21:23 12/23/18 00:32 Bedside Glucose 185 193 170 162 Test 12/23/18 04:50 12/23/18 05:40 12/23/18 09:12 White Blood Count 11.7 H Red Blood Count 3.12 L Hemoglobin 8.9 L Hematocrit 27.7 L Mean Corpuscular 88.8 Volume Mean Corpuscular 28.5 L Hemoglobin Mean Corpuscular 32.1 Hemoglobin Concent Red Cell 13.8 Distribution Width Platelet Count 367 Mean Platelet Volume 8.5 Immature 0.300 Granulocytes % Neutrophils % 56.3 Lymphocytes % 31.5 Monocytes % 9.2 Eosinophils % 2.4 Basophils % 0.3 Nucleated Red Blood 0.0 Cells % Immature 0.040 H Granulocytes # Neutrophils # 6.6 Lymphocytes # 3.7 H Monocytes # 1.1 H Eosinophils # 0.3 Basophils # 0.0 Nucleated Red Blood 0.0 Cells # Sodium Level 134 L Potassium Level 4.3 Chloride Level 103 Carbon Dioxide Level 25 Anion Gap 6 Blood Urea Nitrogen 12 Creatinine 0.55 Glucose Level 175 Calcium Level 8.6 Phosphorus Level 2.6 Magnesium Level 1.8 Albumin 2.9 L Bedside Glucose 197 180 Medications Medication Current Medications IV Flush (NS 3 ml) 3 ml PER PROTOCOL IV ; Start 5/10/19 at 15:00 Lorazepam (Ativan) 2 mg Q10MIN PRN IV seizure; Start 12/17/18 at 15:00 Ondansetron HCl (Zofran Inj) 4 mg Q6H PRN IV NAUSEA/VOMITING; Start 12/17/18 at 15:00 Acetaminophen (Tylenol Supp) 650 mg Q6H PRN CO .PAIN 1-3 OR TEMP; Start 12/17/18 at 15:00 Pantoprazole (Protonix Iv) 40 mg DAILY@06 IV Last administered on 12/23/18at 05:32; Admin Dose 40 MG; Start 12/18/18 at 06:00 Hydralazine HCl (Apresoline) 10 mg Q4H PRN IV sbp >160; Start 12/17/18 at 15:00 Lorazepam (Ativan) 0.5 mg Q6H PRN IV anxiety; Start 12/17/18 at 15:00 Diagnostic Test (Pha) (Accu-Chek) 1 ea 02 XX ; Start 12/18/18 at 02:00 Miscellaneous Information 1 ea NOTE XX ; Start 12/17/18 at 15:00 Glucose (Glutose) 15 gm Q15M PRN PO DECREASED GLUCOSE; Start 12/17/18 at 15:00 Glucose (Glutose) 22.5 gm Q15M PRN PO DECREASED GLUCOSE; Start 12/17/18 at 15:00 Dextrose (D50w Syringe) 25 ml Q15M PRN IV DECREASED GLUCOSE; Start 12/17/18 at 15:00 Dextrose (D50w Syringe) 50 ml Q15M PRN IV DECREASED GLUCOSE; Start 12/17/18 at 15:00 Glucagon (Glucagen) 1 mg Q15M PRN IM DECREASED GLUCOSE; Start 12/17/18 at 15:00 Glucose (Glutose) 15 gm Q15M PRN BUCCAL DECREASED GLUCOSE; Start 12/17/18 at 15:00 Levetiracetam 125 mg/Dextrose 51.25 ml @ 205 mls/hr Q12 IV Last administered on 12/23/18at 09:12; Admin Dose 205 MLS/HR; Start 12/17/18 at 21:00 Piperacillin Sod/ Tazobactam Sod 50 ml @ 100 mls/hr Q6 IVPB Last administered on 12/23/18at 05:32; Admin Dose 100 MLS/HR; Start 12/17/18 at 18:00 Insulin Aspart (Novolog Insulin Pen) (Adult SC Insulin - Mild Algorithm)... Q4 SC Last administered on 12/23/18 09:15; Admin Dose 1 UNIT; Start 12/17/18 at 21:00 Miscellaneous Information (Pending Santyl Order For Wound Care) This patient pinto... PRN PRN XX WOUND CARE; Start 12/18/18 at 12:30 Sodium Hypochlorite (Dakins Diluted (40)) 1 applic BID TP Last administered on 12/23/18 09:15; Admin Dose 1 APPLIC; Start 12/18/18 at 15:30 Bisacodyl (Dulcolax Supp) 10 mg DAILY PRN CO CONSTIPATION; Start 12/20/18 at 10:30 Heparin Sodium (Porcine) (Heparin (5000 Units/1ml)) 5,000 unit BID SC Last administered on 12/23/18 09:14; Admin Dose 5,000 UNIT; Start 12/20/18 at 21:00 Simethicone (Mylicon) 80 mg Q6 GTB Last administered on 12/23/18 05:32; Admin Dose 80 MG; Start 12/21/18 at 12:00 Nystatin (Nystatin Cr) 1 applic BID TOP Last administered on 12/23/18 09:16; Admin Dose 1 APPLIC; Start 12/22/18 at 21:00 FANY ARMENDARIZ MD December 23, 2018 10:57
[2018-12-23] MEDS ORDERED: NYST15CR28 TOP (11:02)
[2018-12-23] MEDS ORDERED: SIME80TA60 GTB (11:02)
--- NOTE | 2018-12-23 11:05 | PDOCDIS ---
Discharge Instructions DIAGNOSIS Discharge Diagnosis 1. PEG site malfunction- resolved 2. Chronic encephalopathy- stable 3. Diabetes mellitus 4. Dysphasia 5. Epilepsy CONDITION [id number] Patient Condition: [id number] Stable HOME CARE INSTRUCTIONS: [id number] Special Diet: [id number] tube feeds FOLLOW UP/APPOINTMENTS Follow-up Plan 1. Follow up with PEG tube changes as previously scheduled and monitor for any further leakage or bleeding 2. Follow up with your primary care physician in 1-2 weeks 3. Apply nystatin cream to redness until resolves and keep area clean and dry 4. Continue all medications as prescribed 5. If experiencing any further issues, please go to your nearest emergency department FANY ARMENDARIZ MD December 23, 2018 11:05
--- NOTE | 2018-12-23 12:26 | PN ---
Date/Time of Note Date/Time of Note DATE: 12/23/18 TIME: 12:24 Assessment/Plan VTE Prophylaxis Risk score (from Ns)>0 risk: 4 SCD applied (from Ns): Yes Pharmacological prophylaxis: other (scds) Lines/Catheters IV Catheter Type (from [facility]): Peripheral IV Urinary Cath still in place: Yes Reason Cath still needed: other (indicate) (monitor output) Assessment/Plan Hospital Course Assessment/Plan Assessment: Malfunctioning PEG tube -erythema and leakage, improved Dysphasia status post PEG placement CVA Severe dementia Coronary artery disease Epilepsy Plan: Minimal leakage noted- plan for D/c today Spoke with patient's daughter- recommend to decrease free fluid from 400 q 8 hrs to 50 q 8 hrs- Continue simethicone via G-tube Continue ABX- as ordered Patient seen in collaboration with Dr. Goncalves Subjective: Min leakage, no over night events. Pt to be d/c'd today Physical exam: Constitutional: alert, frail Psych: confusion Head: normocephalic, atraumatic Eyes: nl conjunctiva ENMT: nl external ears & nose Neck: supple Respiratory: clear to auscultation Cardiovascular: regular rate and rhythm Gastrointestinal: soft, nl liver, spleen, non-tender, other (g tube in place, thick white drainage around stoma site, mild erythema) Musculoskeletal: nl extremities to inspection Neurological: confused Result Diagram: 12/23/18 0450 12/23/18 0450 Results 24hrs Laboratory Tests Test 12/22/18 12:47 12/22/18 17:45 12/22/18 21:23 12/23/18 00:32 Bedside Glucose 185 193 170 162 Test 12/23/18 04:50 12/23/18 05:40 12/23/18 09:12 White Blood Count 11.7 H Red Blood Count 3.12 L Hemoglobin 8.9 L Hematocrit 27.7 L Mean Corpuscular 88.8 Volume Mean Corpuscular 28.5 L Hemoglobin Mean Corpuscular 32.1 Hemoglobin Concent Red Cell 13.8 Distribution Width Platelet Count 367 Mean Platelet Volume 8.5 Immature 0.300 Granulocytes % Neutrophils % 56.3 Lymphocytes % 31.5 Monocytes % 9.2 Eosinophils % 2.4 Basophils % 0.3 Nucleated Red Blood 0.0 Cells % Immature 0.040 H Granulocytes # Neutrophils # 6.6 Lymphocytes # 3.7 H Monocytes # 1.1 H Eosinophils # 0.3 Basophils # 0.0 Nucleated Red Blood 0.0 Cells # Sodium Level 134 L Potassium Level 4.3 Chloride Level 103 Carbon Dioxide Level 25 Anion Gap 6 Blood Urea Nitrogen 12 Creatinine 0.55 Glucose Level 175 Calcium Level 8.6 Phosphorus Level 2.6 Magnesium Level 1.8 Albumin 2.9 L Bedside Glucose 197 180 Exam/Review of Systems Exam Vitals Vital Signs Date Temp Pulse Resp B/P (MAP) Pulse Ox O2 O2 Flow FiO2 Time Delivery Rate 12/23/18 98.0 81 17 134/60 100 08:13 (84) Intake and Output 12/22/18 12/22/18 12/23/18 1515:00 23:00 07:00 IntakeIntake Total 601.25 ml 551.25 ml 820 ml OutputOutput Total 1000 ml 400 ml BalanceBalance -398.75 ml 151.25 ml 820 ml Results Results 24hrs Laboratory Tests Test 12/22/18 12:47 12/22/18 17:45 12/22/18 21:23 12/23/18 00:32 Bedside Glucose 185 193 170 162 Test 12/23/18 04:50 12/23/18 05:40 12/23/18 09:12 White Blood Count 11.7 H Red Blood Count 3.12 L Hemoglobin 8.9 L Hematocrit 27.7 L Mean Corpuscular 88.8 Volume Mean Corpuscular 28.5 L Hemoglobin Mean Corpuscular 32.1 Hemoglobin Concent Red Cell 13.8 Distribution Width Platelet Count 367 Mean Platelet Volume 8.5 Immature 0.300 Granulocytes % Neutrophils % 56.3 Lymphocytes % 31.5 Monocytes % 9.2 Eosinophils % 2.4 Basophils % 0.3 Nucleated Red Blood 0.0 Cells % Immature 0.040 H Granulocytes # Neutrophils # 6.6 Lymphocytes # 3.7 H Monocytes # 1.1 H Eosinophils # 0.3 Basophils # 0.0 Nucleated Red Blood 0.0 Cells # Sodium Level 134 L Potassium Level 4.3 Chloride Level 103 Carbon Dioxide Level 25 Anion Gap 6 Blood Urea Nitrogen 12 Creatinine 0.55 Glucose Level 175 Calcium Level 8.6 Phosphorus Level 2.6 Magnesium Level 1.8 Albumin 2.9 L Bedside Glucose 197 180 Medications Medication Current Medications IV Flush (NS 3 ml) 3 ml PER PROTOCOL IV ; Start 12/17/18 at 15:00 Lorazepam (Ativan) 2 mg Q10MIN PRN IV seizure; Start 12/17/18 at 15:00 Ondansetron HCl (Zofran Inj) 4 mg Q6H PRN IV NAUSEA/VOMITING; Start 12/17/18 at 15:00 Acetaminophen (Tylenol Supp) 650 mg Q6H PRN MD .PAIN 1-3 OR TEMP; Start 12/17/18 at 15:00 Pantoprazole (Protonix Iv) 40 mg DAILY@06 IV Last administered on 12/23/18at 05:32; Admin Dose 40 MG; Start 12/18/18 at 06:00 Hydralazine HCl (Apresoline) 10 mg Q4H PRN IV sbp >160; Start 12/17/18 at 15:00 Lorazepam (Ativan) 0.5 mg Q6H PRN IV anxiety; Start 12/17/18 at 15:00 Diagnostic Test (Pha) (Accu-Chek) 1 ea 02 XX ; Start 12/18/18 at 02:00 Miscellaneous Information 1 ea NOTE XX ; Start 12/17/18 at 15:00 Glucose (Glutose) 15 gm Q15M PRN PO DECREASED GLUCOSE; Start 12/17/18 at 15:00 Glucose (Glutose) 22.5 gm Q15M PRN PO DECREASED GLUCOSE; Start 12/17/18 at 1 5:00 Dextrose (D50w Syringe) 25 ml Q15M PRN IV DECREASED GLUCOSE; Start 12/17/18 at 15:00 Dextrose (D50w Syringe) 50 ml Q15M PRN IV DECREASED GLUCOSE; Start 12/17/18 at 15:00 Glucagon (Glucagen) 1 mg Q15M PRN IM DECREASED GLUCOSE; Start 12/17/18 at 15:00 Glucose (Glutose) 15 gm Q15M PRN BUCCAL DECREASED GLUCOSE; Start 12/17/18 at 15:00 Levetiracetam 125 mg/Dextrose 51.25 ml @ 205 mls/hr Q12 IV Last administered on 12/23/18at 09:12; Admin Dose 205 MLS/HR; Start 12/17/18 at 21:00 Piperacillin Sod/ Tazobactam Sod 50 ml @ 100 mls/hr Q6 IVPB Last administered on 12/23/18at 05:32; Admin Dose 100 MLS/HR; Start 12/17/18 at 18:00 Insulin Aspart (Novolog Insulin Pen) (Adult SC Insulin - Mild Algorithm)... Q4 SC Last administered on 12/23/18 09:15; Admin Dose 1 UNIT; Start 12/17/18 at 21:00 [facility] This patient pinto... PRN PRN XX WOUND CARE; Start 12/18/18 at 12:30 Sodium Hypochlorite (Dakins Diluted ()) 1 applic BID TP Last administered on 12/23/18 09:15; Admin Dose 1 APPLIC; Start 12/18/18 at 15:30 Bisacodyl (Dulcolax Supp) 10 mg DAILY PRN MD CONSTIPATION; Start 12/20/18 at 10:30 Heparin Sodium (Porcine) (Heparin (5000 Units/1ml)) 5,000 unit BID SC Last administered on 12/23/18 09:14; Admin Dose 5,000 UNIT; Start 12/20/18 at 21:00 Simethicone (Mylicon) 80 mg Q6 GTB Last administered on 12/23/18 05:32; Admin Dose 80 MG; Start 12/21/18 at 12:00 Nystatin (Nystatin Cr) 1 applic BID TOP Last administered on 12/23/18 09:16; Admin Dose 1 APPLIC; Start 12/22/18 at 21:00 BRENNEN BAIRD December 23, 2018 12:26
[2018-12-23] MEDS ORDERED: SODI473S5 TP (13:54)
--- NOTE | 2018-12-23 15:29 | DS ---
Date/Time of Note Date/Time of Note DATE: 12/23/18 TIME: 15:25 Discharge Summary Admission/Discharge Info Admit Date/Time December 17, 2018 at 14:28 Discharge Date/Time 12/23/18 Discharge Diagnosis 1. PEG site malfunction- resolved 2. Chronic encephalopathy- stable 3. Diabetes mellitus 4. Dysphasia 5. Epilepsy Patient Condition: Stable Consults GI- Dr. Goncalves Hx of Present Illness Patient is a elderly female the past medical history significant for CVA, severe dementia, epilepsy, coronary artery disease, dysphagia with PEG tube, debility who presents to [facility] from home for PEG tube malfunction. Patient is currently at baseline mentation, is alert but not oriented at all. Patient is aphasic. Does not respond to command but is completely alert. According to daughter at bedside patient routinely gets her PEG tube changed every 3 months however since the last PEG tube change approximately 1 month ago she noticed a worsening erythema as well as blood coming from the PEG tube site. Patient's daughter stated that this began approximately 1 week ago. HPI cannot be completed due to patient's mental status. Labs have returned, patient likely has cellulitis, continue antibiotics, patient's mild bleeding at tube site is stable and her hemoglobin is consistent with previously drawn hemoglobins during her stay last year, monitor closely however, monitor with repeat blood draws tomorrow. Hospital Course Patient was admitted for treatment of PEG tube malfunction with surround cellulitis. Gi was consulted and recommended to discontinue use of PEG to allow for healing. Patient was transitioned to IV medication and daily flushing of PEG tube was performed to assess for leakage. Patient was started on IV antibiotics and erythema surround stoma improved during hospital course. Patients tube feeds were restarted and she was tolerated goal tube feeding rate of 50cc/hr without any noted leakage. Patient was found with vaginal discharge and given a dose of Diflucan. Patients vitals remained stable and presenting symptoms improved significantly. Patient was discharged home in good condition via ambulance. Home Meds Active Scripts Sodium Hypochlorite (Di-Dak-Amparo) 473 Ml Solution, 1 APPLIC TP BID for 30 Days, #1 BOTTLE Prov:FANY ARMENDARIZ MD 12/23/18 Nystatin* (Nystatin*) 15 Gm Cr, 1 APPLIC TOP BID for 14 Days, #1 TUBE Prov:FANY ARMENDARIZ MD 12/23/18 Simethicone* (Mylicon*) 80 Mg Tab, 80 MG GTB TID PRN for bloating for 30 Days, #90 TAB Prov:FANY ARMENDARIZ MD 12/23/18 Reported Medications Carvedilol* (Carvedilol*) 6.25 Mg Tablet, 6.25 MG PO BID, #60 TAB 12/17/18 Losartan-Hydrochlorothiazide (Losartan-HCTZ) 50-12.5 Mg Tab, 1 TAB PO DAILY, TAB 12/17/18 Clopidogrel Bisulfate* (Clopidogrel Bisulfate*) 75 Mg Tablet, 75 MG GTB DAILY, #30 TAB 12/17/18 Levetiracetam* (Keppra*) 250 Mg Tab, 125 MG GTB BID, TAB 12/17/18 Metformin Hcl* (Metformin Hcl*) 500 Mg Tablet, 500 MG GTB WITH BREAKFAST DINNE, #60 TAB 12/17/18 Discontinued Reported Medications Alprazolam* (Alprazolam*) 0.25 Mg Tablet, 0.25 MG PO DAILY PRN for ANXIETY, TAB 12/09/17 Docusate Sodium* (Colace*) 100 Mg Capsule, 100 MG PO BID PRN for CONSTIPATION, #60 CAP 12/09/17 Atorvastatin* (Atorvastatin*) 40 Mg Tablet, 40 MG PO QHS, #30 TAB 12/09/17 Simethicone (Gas-X) 62.5 Mg Strip, 62.5 MG PO DAILY, STRIP 12/09/17 Cholecalciferol* (Vitamin D3*) 1,000 Unit Tablet, 1000 UNIT PO DAILY, TAB 12/09/17 Ascorbic Acid* (Vitamin C*) 500 Mg Capsule.sa, 500 MG PO DAILY, CAP 12/09/17 Losartan-Hydrochlorothiazide (Losartan-HCTZ) 50-12.5 Mg Tab, 1 TAB PO DAILY, #30 12/09/17 Carvedilol* (Coreg*) 6.25 Mg Tablet, 6.25 MG PO BID, #60 TAB 12/09/17 Quetiapine Fumarate* (Seroquel*) 25 Mg Tablet, 25 MG PO DAILY, #30 TAB 12/09/17 Cyanocobalamin/FA/Pyridoxine (Folgard Rx Tablet) 1 Each Tablet, 1 EACH PO DAILY, TAB 12/09/17 Metformin* (Glucophage*) 500 Mg Tab, 500 MG PO WITH MEALS, #90 TAB 12/09/17 Clopidogrel Bisulfate (Clopidogrel) 75 Mg Tablet, 75 MG PO DAILY, #30 TAB 12/09/17 Esomeprazole Magnesium (Esomeprazole Magnesium) 40 Mg Capsule.dr, 40 MG PO BEFORE BREAKFAST, #30 CAP 12/09/17 Discontinued Scripts Ciprofloxacin Hcl* (Ciprofloxacin Hcl*) 500 Mg Tablet, 500 MG PO BID for 7 Days, #14 TAB Prov:JUAN ALBERTO DUNLAP 12/30/17 Ciprofloxacin Hcl* (Ciprofloxacin Hcl*) 500 Mg Tablet, 500 MG PO BID for 3 Days, #6 TAB Prov:JUAN ALBERTO DUNLAP 12/30/17 Memantine* (Namenda*) 5 Mg Tablet, 5 MG PO DAILY, #60 TAB Prov:JUAN ALBERTO DUNLAP 12/30/17 Donepezil* (Aricept*) 5 Mg Tablet, 5 MG PO DAILY, #60 TAB Prov:JUAN ALBERTO DUNLAP 12/30/17 Follow-up Plan 1. Follow up with PEG tube changes as previously scheduled and monitor for any further leakage or bleeding 2. Follow up with your primary care physician in 1-2 weeks 3. Apply nystatin cream to redness until resolves and keep area clean and dry 4. Continue all medications as prescribed 5. If experiencing any further issues, please go to your nearest emergency department Primary Care Provider Not On Staff Doctor Time spent on discharge: > 30 minutes Pending Labs Laboratory Tests Test 12/22/18 17:45 12/22/18 21:23 12/23/18 00:32 12/23/18 04:50 Bedside 193 170 162 Glucose mg/dL (70-220) mg/dL (70-220) mg/dL (70-220) White Blood 11.7 Count 10^3/ul (4.8-1 0.8) Red Blood 3.12 Count 10^6/ul (4.20- 5.40) Hemoglobin 8.9 g/dl (12.0-16. 0) Hematocrit 27.7 % (37.0-47.0) Mean 88.8 Corpuscular fl (82.0-101.0 Volume ) Mean 28.5 Corpuscular pg (29.0-33.0) Hemoglobin Mean 32.1 Corpuscular g/dl (32.0-37. Hemoglobin Conc 0) ent Red Cell 13.8 Distribution % (11.5-14.5) Width Platelet Count 367 10^3/UL (140-4 15) Mean Platelet 8.5 Volume fl (7.4-10.4) Immature 0.300 Granulocytes % % (0.001-0.429 ) Neutrophils % 56.3 % (39.0-77.0) Lymphocytes % 31.5 % (15.0-51.0) Monocytes % 9.2 % (0.0-11.0) Eosinophils % 2.4 % (0.0-7.0) Basophils % 0.3 % (0.0-2.0) Nucleated Red 0.0 Blood Cells % /100WBC (0.0-0 .0) Immature 0.040 Granulocytes # 10^3/ul (0.0-0 .031) Neutrophils # 6.6 10^3/ul (1.6-7 .5) Lymphocytes # 3.7 10^3/ul (0.8-2 .9) Monocytes # 1.1 10^3/ul (0.3-0 .9) Eosinophils # 0.3 10^3/ul (0.0-0 .5) Basophils # 0.0 10^3/ul (0.0-0 .1) Nucleated Red 0.0 Blood Cells # 10^3/ul (0.0-0 .0) Sodium Level 134 mmol/L (135-14 4) Potassium 4.3 Level mmol/L (3.5-5. 1) Chloride Level 103 mmol/L (97-110 ) Carbon Dioxide 25 Level mmol/L (21-31) Anion Gap 6 (5-13) Blood Urea 12 Nitrogen mg/dl (7-20) Creatinine 0.55 mg/dl (0.44-1. 00) Glucose Level 175 mg/dl (70-220) Calcium Level 8.6 mg/dl (8.4-10. 2) Phosphorus 2.6 Level mg/dl (2.5-4.9 ) Magnesium 1.8 Level mg/dl (1.7-2.5 ) Albumin 2.9 g/dl (3.3-4.9) Test 12/23/18 05:40 12/23/18 09:12 12/23/18 12:31 Bedside 197 180 187 Glucose mg/dL (70-220) mg/dL (70-220) mg/dL (70-220) FANY ARMENDARIZ MD December 23, 2018 15:29
[2018-12-23 15:30] VITALS: BP 130/85; PULSE 80; RESP 17
== END 2018-12-23 18:50 | disposition home or self-care (01) | DRG 393 ==
LOC: E/R 12:59 → 2NE 14:28
PROVIDERS: ADMIT Internal Medicine; ATTEND Internal Medicine
DX: K94.23 Gastrostomy malfunction (principal); L89.154 Pressure ulcer of sacral region, stage 4; L03.311 Cellulitis of abdominal wall; G93.49 Other encephalopathy; E87.1 Hypo-osmolality and hyponatremia; R47.01 Aphasia; K94.22 Gastrostomy infection; I69.398 Other sequelae of cerebral infarction; I69.391 Dysphagia following cerebral infarction; R13.10 Dysphagia, unspecified; G40.909 Epilepsy, unspecified, not intractable, without status epilepticus; F03.90 Unspecified dementia, unspecified severity, without behavioral disturbance, psychotic disturbance, mood disturbance, and anxiety; E11.9 Type 2 diabetes mellitus without complications
CPT/HCPCS: 36415; 74018; 74176; 80048; 80053; 80061; 80069; 82962; 83036; 83605; 83690; 83735; 84100; 84443; 85025; 85610; 85730; C9113; J1644; J1815; J1953; J2543; J3475; J3480; J7040; J7042